=== PATIENT | male | born 1935 | race Caucasian/White ===

== ENCOUNTER → 2017-02-19 | Outpatient (CLI) | payer OTHER ==
--- NOTE | 2017-02-19 10:14 | US ---
EXAMINATION TYPE: US abdomen comp/pelvis limited DATE OF EXAM: 02/19/2017 9:17 AM COMPARISON: NONE CLINICAL HISTORY: N17.9 acute kidney failure. Acute renal failure, pt has no other complaints EXAM MEASUREMENTS: Liver Length: 13.9 cm Gallbladder Wall: 0.3 cm CBD: 0.5 cm Spleen: 9.6 cm Right Kidney: 9.6 x 5.5 x 5.4 cm Left Kidney: 11.5 x 5.6 x 4.8 cm Post Void Residual: 464 mL Pancreas: wnl, tail obscured by overlying bowel gas Liver: wnl Gallbladder: wnl CBD: wnl Spleen: wnl Right Kidney: Cortical thinning, no evidence of hydro Left Kidney: Slightly dilated renal pelvis cortical medullary differentiation maintained bilaterally . No evident renal mass Upper IVC: wnl in its visualized portions Abd Aorta: Within the limits of the exam wnl Bladder: There is some bladder wall thickening. Difficult to exclude some internal debris, luminal ma ss posteriorly Bilateral Jets Seen No Normal Post Void Residual (normal less than 50ml) No IMPRESSION: Elevated post void residual volume, bladder wall thickening, correlate to exclude cystiti s, difficult to exclude a superficial mass, follow-up as indicated. Correlate for chronic bladder out let obstruction. Mild left-sided hydronephrosis suspected. Cortical thinning right kidney.
== END | disposition home or self-care (01) ==
LOC: RADUSMAIN 08:33
PROVIDERS: ATTEND Nurse Practitioner Acute Care
DX: N32.89 Other specified disorders of bladder (principal); N28.89 Other specified disorders of kidney and ureter; R93.41 Abnormal radiologic findings on diagnostic imaging of renal pelvis, ureter, or bladder
CPT/HCPCS: 76700; 76857

== ENCOUNTER → 2017-09-17 | Outpatient (CLI) | payer OTHER ==
--- NOTE | 2017-09-17 11:19 | US ---
EXAMINATION TYPE: US abdomen comp/pelvis limited DATE OF EXAM: 09/17/2017 COMPARISON: 02/19/2017 CLINICAL HISTORY: 82-year-old male Kidney Failure N17.9. TECHNIQUE: Multiple sonographic images of the abdomen and bladder were obtained. FINDINGS: Liver Length: 12.9 cm Gallbladder Wall: 0.3 cm CBD: 0.4 cm Spleen: 12.1 cm Right Kidney: 10.3 x 5.3 x 5.3 cm Left Kidney: 11.8 x 6.0 x 5.4 cm Pancreas: visualized portions wnl. The tail is obscured by bowel gas. Liver: Relatively homogeneous echotexture. No focal lesion seen. Gallbladder: Anterior position. Otherwise, no abnormality seen. CBD: wnl Spleen: wnl Right Kidney: thinned cortex with mild pelvicaliectasis which may be transient. Left Kidney: thinned cortex without hydronephrosis Upper IVC: wnl Abd Aorta: Mild atherosclerotic irregularity without aneurysm. Bladder: wnl FOXER NOTES: patient has personal history of colon cancer and an ostomy bag. IMPRESSION: Renal cortical thinning suggesting underlying chronic medical renal disease. There is mild pelvicalie ctasis on the right which may be transient. Short interval follow-up can be considered.
== END | disposition home or self-care (01) ==
LOC: RADUSWWP 08:56
PROVIDERS: ATTEND Family Medicine
DX: N28.89 Other specified disorders of kidney and ureter (principal)
CPT/HCPCS: 76700; 76857

== ENCOUNTER → 2017-12-09 | Outpatient (CLI) | payer MEDICARE ==
[2017-12-09 11:30] LABS: Albumin 4.1 g/dL (3.5-5.0); Magnesium 1.8 mg/dL (1.6-2.3); Phosphorus 3.9 mg/dL (2.5-4.5); Potassium 5.3 mmol/L (3.5-5.1); Total Bilirubin 0.3 mg/dL (0.2-1.3); Total Protein 7.5 g/dL (6.3-8.2)
[2017-12-09 17:46] LABS: Vitamin D 25 Hydroxy 20.4 ng/mL (30.0-100.0)
[2017-12-09 18:35] LABS: Parathyroid Hormone Intact 48.8 pg/mL (14.0-72.0)
== END | disposition home or self-care (01) ==
LOC: LABWHC1 10:35
PROVIDERS: ATTEND Internal Medicine
DX: N18.3 Chronic kidney disease, stage 3 (moderate) (principal)
CPT/HCPCS: 36415; 80053; 82306; 83735; 83970; 84100; 84550

== ENCOUNTER → 2018-04-07 | Outpatient (CLI) | payer MEDICARE ==
[2018-04-07 14:58] LABS: Amorphous Sediment,Urine Rare /hpf; Appearance,Urine Turbid (Clear); Bilirubin,Urine Negative (Negative); Blood,Urine Small (Negative); Color,Urine Light Yellow; Glucose,Urine (UA) 3+ (Negative); Ketones,Urine Negative (Negative); Leukocyte Esterase,Urine Large (Negative); Nitrite,Urine Positive (Negative); PH, Urine 5.5 (5.0-8.0); Protein,Urine 1+ (Negative); RBC,Urine 13 /hpf (0-5); Urobilinogen,Urine <2.0 mg/dL (<2.0); WBC,Urine >182 /hpf (0-5)
[2018-04-07 15:03] LABS: Albumin 4.1 g/dL (3.5-5.0); Calcium 9.4 mg/dL (8.4-10.2); Magnesium 1.9 mg/dL (1.6-2.3); Phosphorus 3.8 mg/dL (2.5-4.5); Potassium 4.8 mmol/L (3.5-5.1); Total Bilirubin 0.2 mg/dL (0.2-1.3); Total Protein 7.1 g/dL (6.3-8.2); Uric Acid 7.5 mg/dL (3.5-8.5)
[2018-04-07 18:43] LABS: Vitamin D 25 Hydroxy 18.4 ng/mL (30.0-100.0)
[2018-04-07 19:04] LABS: Parathyroid Hormone Intact 68.3 pg/mL (14.0-72.0)
== END | disposition home or self-care (01) ==
LOC: LABWHC1 13:43
PROVIDERS: ATTEND Nurse Practitioner Family
DX: N18.3 Chronic kidney disease, stage 3 (moderate) (principal)
CPT/HCPCS: 36415; 80053; 81001; 82043; 82306; 82570; 83735; 83970; 84100; 84550

== ENCOUNTER 2022-01-14 10:56 | Observation (INO) | payer MEDICARE, OTHER ==
[2022-01-14 11:15] LABS: Glucose,Whole Blood 133 mg/dL (75-99)
[2022-01-14] MEDS ORDERED: SODIUM CHLORIDE 0.9% 500 ML 500 ML IV STA (11:35)
[2022-01-14] MEDS ORDERED: MECLIZINE 12.5 MG TAB PO STA (11:35)
[2022-01-14 12:07] LABS: Basophils % (A) 0 %; Eosinophils # (A) 0.1 k/uL (0-0.7); Eosinophils % (A) 2 %; HCT 47.1 % (39.0-53.0); HGB 14.8 gm/dL (13.0-17.5); Lymphocytes # (A) 1.4 k/uL (1.0-4.8); Lymphocytes % (A) 21 %; MCH 29.4 pg (25.0-35.0); MCHC 31.5 g/dL (31.0-37.0); MCV 93.5 fL (80.0-100.0); Mean Platelet Volume 7.2; Monocytes # (A) 0.5 k/uL (0-1.0); Monocytes % (A) 8 %; Neutrophils # (A) 4.4 k/uL (1.3-7.7); Neutrophils % (A) 67 %; Platelet Count 349 k/uL (150-450); RBC 5.04 m/uL (4.30-5.90); RDW 14.1 % (11.5-15.5); WBC 6.6 k/uL (3.8-10.6)
[2022-01-14 12:20] LABS: Partial Thromboplastin Time 23.9 sec (22.0-30.0); Prothrombin Time 11.3 sec (9.0-12.0)
--- NOTE | 2022-01-14 12:21 | CT ---
EXAMINATION TYPE: CT brain wo con DATE OF EXAM: 01/14/2022 COMPARISON: CT dated 02/25/2016 HISTORY: Dizziness and confusion. CT DLP: 1143.4 mGycm Automated exposure control for dose reduction was used. TECHNIQUE: CT scan of the brain is performed without IV contrast administration. FINDINGS: Brain volume loss changes, likely age-related. Bilateral cerebral white matter hypodensities, likely representing chronic microvascular ischemic changes. Right cerebellar area of encephalomalacia, proba radha representing sequela of previous intervention. No acute intracranial hemorrhage. No gross acute cortical infarct. No midline shift, herniation or ve ntriculomegaly. Unremarkable basal cisterns, sella and CP angles. No gross space-occupying lesion, va sogenic edema or mass effect. Unremarkable orbits. Asymmetrically prominent left side of the nasopharynx, appreciated previously. C lear visualized paranasal sinuses and mastoid air cells. Previous right partial occipital craniectomy . Osteopenia. IMPRESSION: No acute intracranial abnormality or gross space-occupying lesion by this nonenhanced CT scan. Chroni c and incidental findings as described above.
--- NOTE | 2022-01-14 12:43 | XR ---
EXAMINATION TYPE: XR chest 2V DATE OF EXAM: 01/14/2022 COMPARISON: Chest x-ray 03/12/2016, CT chest 11/06/2011 HISTORY: Dizziness, chest pain TECHNIQUE: Frontal and lateral views of the chest are obtained. FINDINGS: Pleural-parenchymal changes seen on prior exam show a similar appearance. Apical pleural t hickening is again seen, there is no evident pneumothorax or pleural effusion. Cardiac mediastinal si lhouette is likely stable accounting for differences in technique. Aorta is dense. 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 Arthropathy noted in the shoulders. IMPRESSION: Suspect underlying interstitial lung disease, pulmonary fibrosis with pleural thickening
[2022-01-14 13:40] LABS: Albumin 3.5 g/dL (3.5-5.0); Calcium 8.8 mg/dL (8.4-10.2); Magnesium 1.5 mg/dL (1.6-2.3); Potassium 5.1 mmol/L (3.5-5.1); Total Bilirubin 0.7 mg/dL (0.2-1.3); Total Protein 7.7 g/dL (6.3-8.2)
[2022-01-14 13:42] LABS: Appearance,Urine Turbid (Clear); Bacteria,Urine Many /hpf; Bilirubin,Urine Negative (Negative); Blood,Urine Moderate (Negative); Color,Urine Yellow; Glucose,Urine (UA) Negative (Negative); Ketones,Urine Negative (Negative); Leukocyte Esterase,Urine Large (Negative); Mucus,Urine Rare /hpf; Nitrite,Urine Positive (Negative); Protein,Urine 2+ (Negative); RBC,Urine 24 /hpf (0-5); Urobilinogen,Urine <2.0 mg/dL (<2.0); WBC,Urine >182 /hpf (0-5)
[2022-01-14 13:47] LABS: Specific Gravity,Urine 1.017 (1.001-1.035)
--- NOTE | 2022-01-14 14:02 | ED ---
Dizziness HPI - General Chief Complaint: Dizziness Stated Complaint: dizzy Time Seen by Provider: 01/14/22 11:19 Source: patient, RN notes reviewed Mode of arrival: ambulatory Limitations: no limitations - History of Present Illness Initial Comments: 86-year-old male presents emergency department with family for concerns of weakness, dizziness, generalized not feeling well. Patient started not feeling well the last couple days and Lorcet days and upper extremity infection. Patient states that he woke up this morning started having some dizziness states that he felt very unsteady on his feet. Patient states he just feels real weak, run down and as usual self. Denies any shortness of breath denies any nausea and diarrhea constipation. Patient reports subjective fevers and chills. No mental headache or any focal weakness no blurred vision. - Related Data Home Medications Medication Instructions Recorded Confirmed Levothyroxine Sodium [Synthroid] 100 mcg PO DAILY 02/25/16 01/14/22 Simvastatin [Zocor] 80 mg PO HS 02/25/16 01/14/22 Terazosin [Hytrin] 5 mg PO BID 02/25/16 01/14/22 Finasteride [Proscar] 5 mg PO DAILY 01/14/22 01/14/22 Insulin Glargine,Hum.rec.anlog 60 unit SQ DAILY 01/14/22 01/14/22 [Lantus Solostar Pen] amLODIPine [Norvasc] 5 mg PO DAILY 01/14/22 01/14/22 metFORMIN HCL [Glucophage] 500 mg PO BID 01/14/22 01/14/22 Allergies Allergy/AdvReac Type Severity Reaction Status Date / Time No Known Allergies Allergy Verified 01/14/22 12:48 Review of Systems ROS Statement: Those systems with pertinent positive or pertinent negative responses have been documented in the HPI. ROS Other: All systems not noted in ROS Statement are negative. Past Medical History Past Medical History: Cancer, CVA/TIA, Diabetes Mellitus Additional Past Medical History / Comment(s): colorectal ca- colostomy Left side History of Any Multi-Drug Resistant Organisms: None Reported Past Surgical History: Bowel Resection Additional Past Surgical History / Comment(s): benign brain tumor with removal Past Anesthesia/Blood Transfusion Reactions: No Reported Reaction Past Psychological History: No Psychological Hx Reported Smoking Status: Never smoker Past Alcohol Use History: Rare Past Drug Use History: None Reported - Past Family History Father Family Medical History: CVA/TIA General Exam Limitations: no limitations General appearance: alert, in no apparent distress Head exam: Present: atraumatic, normocephalic, normal inspection Eye exam: Present: normal appearance, PERRL, EOMI. Absent: scleral icterus, conjunctival injection, periorbital swelling ENT exam: Present: normal exam, normal oropharynx, mucous membranes moist Neck exam: Present: normal inspection, full ROM. Absent: tenderness, meningismus, lymphadenopathy Respiratory exam: Present: normal lung sounds bilaterally. Absent: respiratory distress, wheezes, rales, rhonchi, stridor Cardiovascular Exam: Present: regular rate, normal rhythm, normal heart sounds. Absent: systolic murmur, diastolic murmur, rubs, gallop, clicks GI/Abdominal exam: Present: soft, normal bowel sounds. Absent: distended, tenderness, guarding, rebound, rigid Back exam: Absent: CVA tenderness (R), CVA tenderness (L) Neurological exam: Present: alert Skin exam: Present: warm, dry, intact, normal color. Absent: rash Course Vital Signs 01/14/22 11:07 Temperature 97.8 F Pulse Rate 92 Respiratory 18 Rate Blood Pressure 175/90 O2 Sat by Pulse 98 Oximetry EKG Findings - EKG Comments: EKG Findings:: EKG performed at 1141 sinus rhythm with first-degree block, rate of 88 DC interval 229 QRS 82 QT/QTC 346 at 392 Medical Decision Making - Lab Data Result diagrams: 01/14/22 11:45 01/14/22 13:10 Lab Results 01/14/22 01/14/22 01/14/22 Range/Units 11:13 11:45 11:45 WBC 6.6 (3.8-10.6) k/uL RBC 5.04 (4.30-5.90) m/uL Hgb 14.8 (13.0-17.5) gm/dL Hct 47.1 (39.0-53.0) % MCV 93.5 (80.0-100.0) fL MCH 29.4 (25.0-35.0) pg MCHC 31.5 (31.0-37.0) g/dL RDW 14.1 (11.5-15.5) % Plt Count 349 (150-450) k/uL MPV 7.2 Neutrophils % 67 % Lymphocytes % 21 % Monocytes % 8 % Eosinophils % 2 % Basophils % 0 % Neutrophils # 4.4 (1.3-7.7) k/uL Lymphocytes # 1.4 (1.0-4.8) k/uL Monocytes # 0.5 (0-1.0) k/uL Eosinophils # 0.1 (0-0.7) k/uL Basophils # 0.0 (0-0.2) k/uL PT (9.0-12.0) sec INR (<1.2) APTT (22.0-30.0) sec Sodium (137-145) mmol/L Potassium (3.5-5.1) mmol/L Chloride (98-107) mmol/L Carbon Dioxide (22-30) mmol/L Anion Gap mmol/L BUN (9-20) mg/dL Creatinine (0.66-1.25) mg/dL Est GFR (CKD-EPI)AfAm (>60 ml/min/1.73 sqM) Est GFR (CKD-EPI)NonAf (>60 ml/min/1.73 sqM) Glucose (74-99) mg/dL POC Glucose (mg/dL) 133 H (75-99) mg/dL POC Glu Cinder Snapper ID Brian Roy Calcium (8.4-10.2) mg/dL Magnesium (1.6-2.3) mg/dL Total Bilirubin (0.2-1.3) mg/dL AST (17-59) U/L ALT (4-49) U/L Alkaline Phosphatase (38-126) U/L Troponin I (0.000-0.034) ng/mL Total Protein (6.3-8.2) g/dL Albumin (3.5-5.0) g/dL Urine Color Yellow Urine Appearance Turbid (Clear) Urine pH 8.0 (5.0-8.0) Ur Specific Elkins 1.017 (1.001-1.035) Urine Protein 2+ H (Negative) Urine Glucose (UA) Negative (Negative) Urine Ketones Negative (Negative) Urine Blood Moderate H (Negative) Urine Nitrite Positive (Negative) Urine Bilirubin Negative (Negative) Urine Urobilinogen <2.0 (<2.0) mg/dL Ur Leukocyte Esterase Large H (Negative) Urine RBC 24 H (0-5) /hpf Urine WBC >182 H (0-5) /hpf Urine WBC Clumps Many H (None) /hpf Urine Bacteria Many H (None) /hpf Urine Mucus Rare H (None) /hpf Coronavirus (PCR) (Not Detectd) Influenza Type A RNA (Not Detectd) Influenza Type B (PCR) (Not Detectd) 01/14/22 01/14/22 01/14/22 Range/Units 11:45 13:10 13:10 WBC (3.8-10.6) k/uL RBC (4.30-5.90) m/uL Hgb (13.0-17.5) gm/dL Hct (39.0-53.0) % MCV (80.0-100.0) fL MCH (25.0-35.0) pg MCHC (31.0-37.0) g/dL RDW (11.5-15.5) % Plt Count (150-450) k/uL MPV Neutrophils % % Lymphocytes % % Monocytes % % Eosinophils % % Basophils % % Neutrophils # (1.3-7.7) k/uL Lymphocytes # (1.0-4.8) k/uL Monocytes # (0-1.0) k/uL Eosinophils # (0-0.7) k/uL Basophils # (0-0.2) k/uL PT 11.3 (9.0-12.0) sec INR 1.0 (<1.2) APTT 23.9 (22.0-30.0) sec Sodium 140 (137-145) mmol/L Potassium 5.1 (3.5-5.1) mmol/L Chloride 111 H (98-107) mmol/L Carbon Dioxide 20 L (22-30) mmol/L Anion Gap 9 mmol/L BUN 39 H (9-20) mg/dL Creatinine 1.65 H (0.66-1.25) mg/dL Est GFR (CKD-EPI)AfAm 43 (>60 ml/min/1.73 sqM) Est GFR (CKD-EPI)NonAf 37 (>60 ml/min/1.73 sqM) Glucose 127 H (74-99) mg/dL POC Glucose (mg/dL) (75-99) mg/dL POC Glu Cinder Snapper ID Calcium 8.8 (8.4-10.2) mg/dL Magnesium 1.5 L (1.6-2.3) mg/dL Total Bilirubin 0.7 (0.2-1.3) mg/dL AST 17 (17-59) U/L ALT 11 (4-49) U/L Alkaline Phosphatase 99 (38-126) U/L Troponin I 0.013 (0.000-0.034) ng/mL Total Protein 7.7 (6.3-8.2) g/dL Albumin 3.5 (3.5-5.0) g/dL Urine Color Urine Appearance (Clear) Urine pH (5.0-8.0) Ur Specific Elkins (1.001-1.035) Urine Protein (Negative) Urine Glucose (UA) (Negative) Urine Ketones (Negative) Urine Blood (Negative) Urine Nitrite (Negative) Urine Bilirubin (Negative) Urine Urobilinogen (<2.0) mg/dL Ur Leukocyte Esterase (Negative) Urine RBC (0-5) /hpf Urine WBC (0-5) /hpf Urine WBC Clumps (None) /hpf Urine Bacteria (None) /hpf Urine Mucus (None) /hpf Coronavirus (PCR) (Not Detectd) Influenza Type A RNA (Not Detectd) Influenza Type B (PCR) (Not Detectd) 01/14/22 01/14/22 Range/Units 13:12 13:12 WBC (3.8-10.6) k/uL RBC (4.30-5.90) m/uL Hgb (13.0-17.5) gm/dL Hct (39.0-53.0) % MCV (80.0-100.0) fL MCH (25.0-35.0) pg MCHC (31.0-37.0) g/dL RDW (11.5-15.5) % Plt Count (150-450) k/uL MPV Neutrophils % % Lymphocytes % % Monocytes % % Eosinophils % % Basophils % % Neutrophils # (1.3-7.7) k/uL Lymphocytes # (1.0-4.8) k/uL Monocytes # (0-1.0) k/uL Eosinophils # (0-0.7) k/uL Basophils # (0-0.2) k/uL PT (9.0-12.0) sec INR (<1.2) APTT (22.0-30.0) sec Sodium (137-145) mmol/L Potassium (3.5-5.1) mmol/L Chloride (98-107) mmol/L Carbon Dioxide (22-30) mmol/L Anion Gap mmol/L BUN (9-20) mg/dL Creatinine (0.66-1.25) mg/dL Est GFR (CKD-EPI)AfAm (>60 ml/min/1.73 sqM) Est GFR (CKD-EPI)NonAf (>60 ml/min/1.73 sqM) Glucose (74-99) mg/dL POC Glucose (mg/dL) (75-99) mg/dL POC Glu Cinder Snapper ID Calcium (8.4-10.2) mg/dL Magnesium (1.6-2.3) mg/dL Total Bilirubin (0.2-1.3) mg/dL AST (17-59) U/L ALT (4-49) U/L Alkaline Phosphatase (38-126) U/L Troponin I (0.000-0.034) ng/mL Total Protein (6.3-8.2) g/dL Albumin (3.5-5.0) g/dL Urine Color Urine Appearance (Clear) Urine pH (5.0-8.0) Ur Specific Elkins (1.001-1.035) Urine Protein (Negative) Urine Glucose (UA) (Negative) Urine Ketones (Negative) Urine Blood (Negative) Urine Nitrite (Negative) Urine Bilirubin (Negative) Urine Urobilinogen (<2.0) mg/dL Ur Leukocyte Esterase (Negative) Urine RBC (0-5) /hpf Urine WBC (0-5) /hpf Urine WBC Clumps (None) /hpf Urine Bacteria (None) /hpf Urine Mucus (None) /hpf Coronavirus (PCR) Not Detected (Not Detectd) Influenza Type A RNA Not Detected (Not Detectd) Influenza Type B (PCR) Not Detected (Not Detectd) Disposition Clinical Impression: UTI (urinary tract infection), Weakness, Unsteady gait, Dizziness Disposition: ADMITTED IP TO THIS HOSP Condition: Fair Referrals: [facility],Clinic [Primary Care Provider] - 1-2 days Time of Disposition: 14:37
[2022-01-14] MEDS ORDERED: ACETAMINOPHEN TAB 325 MG TAB PO PRN (14:37)
[2022-01-14] MEDS ORDERED: NALOXONE 0.4 MG/ML 1 ML VIAL IV PRN (14:37)
[2022-01-14] MEDS ORDERED: ONDANSETRON 4 MG/2 ML VIAL IVP PRN (14:37)
--- NOTE | 2022-01-14 16:03 | US ---
EXAMINATION TYPE: US renals and bladder DATE OF EXAM: 01/14/2022 COMPARISON: Ultrasound dated 09/17/2017 CLINICAL HISTORY: infection. Abnormal renal labs EXAM MEASUREMENTS: Right Kidney: 9.1 x 4.8 x 4.8 cm Left Kidney: 9.6 x 5.4 x 4.7 cm Right Kidney: Cortical thinning, cyst lower pole= 2.0 x 1.4 x 2.1 cm Left Kidney: Cortical thinning Bladder: Unable to visualize due to pt voiding just prior to exam IMPRESSION: Bilateral renal cortical thinning, probably related to chronic medical renal disease. No hydronephros is bilaterally. The urinary bladder is completely collapsed.
--- NOTE | 2022-01-14 17:21 | P.HPIM ---
History of Present Illness H&P Date: 01/14/22 Chief Complaint: Generalized weakness 86-year-old man with a history of hypertension, diabetes, hypothyroidism, BPH, colostomy, for unclear reason presented for generalized weakness, shakes. Patient says that her symptoms started yesterday to this morning, initially which shakes, then progressing to generalized weakness. He also had chills and mild fevers according to him. He denies having any episodes of burning when he urinates, but does report that he's been going more frequently than normal, denies any hesitancy, nocturia. He denies any flank pain. He also denies: Nausea, vomiting, chest pain, palpitations, syncope, presyncope, cough, dyspnea, abdominal pain, constipation, diarrhea, dyschezia, numbness/weakness of extremities. Interestingly, patient has an ileostomy, but presented without a bag, with fecal contents across his abdomen. It is not clear why he has this ileostomy, and patient cannot remember when he had his procedure done for it. I was able to call patient's son Kodak, who was not aware the patient was hospitalized, documentation from our emergency room as that patient was brought in by family member. However, Kodak is on the next of kin to notify. Regardless, he was able to provide history for me that patient had a history of colon cancer with colectomy resulting in colostomy bag for which she typically has been routinely changing his bags. Which ever family member brought the patient in also had concerns about a little bit of confusion in the last couple days intermittently. In the emergency room, patient was afebrile, 175/90, heart rate 92, 98% on room air. CBC was unremarkable. Chemistries show mild acidosis without an anion gap to bicarb of 20, BUNs/creatinine of 39/1.65 with a baseline creatinine of 1.4. LFTs are unremarkable. Magnesium was little bit low at 1.5. Initial troponin was negative. UA was positive with 2+ glucose, moderate blood, positive nitrite, large amount of leukocyte esterase, 24 red blood cells, greater than 182 white blood cells, many bacteria, many white blood cell clumps. Covid, influenza A/B were all negative. Patient underwent brain CT due to history of confusion provided by family member, this had no acute intracranial abnormality or gross space-occupying lesion identified by the nonenhanced computed tomography scan. Chest x-ray shows underlying interstitial lung disease, concerning for pulmonary fibrosis and pleural thickening. EKG demonstrates normal sinus rhythm with first-degree AV block. Renal ultrasound shows no evidence of hydronephrosis or hydroureter, does show bilateral renal cortical thinning consistent with chronic medical renal disease. All Systems reviewed and pertinent positives and negatives noted in HPI, all other symptoms are negative Gen: awake, alert HEENT: normocephalic, atraumatic, good hearing acuity, moist mucous membranes Resp: good air exchange, breathing comfortably with no accessory muscle use, clear to auscultation bilaterally CVS: good distal perfusion x 4, regular rate and rhythm, no appreciable murmurs GI: soft, NTTP, ND : Positive SPT, no CVAT, costello catheter not present MSK: no pitting edema, no clubbing Neuro: non-focal, moving all extremities Psych: cooperative, euthymic mood Labs and imaging reviewed as above Assessment/plan: Complicated urinary tract infection Toxic encephalopathy secondary to urinary tract infection -Admit to observation, telemetry -Ceftriaxone -Urine culture -Frequent reorientation -IV fluids -Renal ultrasound was completed, negative for hydronephrosis or hydroureter or abscess Hypertension Hyperlipidemia Diabetes type 2 Hypothyroidism BPH History of colon cancer status post colostomy -Home medications reviewed and reconciled Patient is a no code DVT prophylaxis with heparin 3 times a day Past Medical History Past Medical History: Cancer, CVA/TIA, Diabetes Mellitus Additional Past Medical History / Comment(s): colorectal ca- colostomy Left side History of Any Multi-Drug Resistant Organisms: None Reported Past Surgical History: Bowel Resection Additional Past Surgical History / Comment(s): benign brain tumor with removal Past Anesthesia/Blood Transfusion Reactions: No Reported Reaction Past Psychological History: No Psychological Hx Reported Smoking Status: Never smoker Past Alcohol Use History: Rare Past Drug Use History: None Reported - Past Family History Father Family Medical History: CVA/TIA Medications and Allergies Home Medications Medication Instructions Recorded Confirmed Type Levothyroxine Sodium [Synthroid] 100 mcg PO DAILY 02/25/16 01/14/22 History Simvastatin [Zocor] 80 mg PO HS 02/25/16 01/14/22 History Terazosin [Hytrin] 5 mg PO BID 02/25/16 01/14/22 History Finasteride [Proscar] 5 mg PO DAILY 01/14/22 01/14/22 History Insulin Glargine,Hum.rec.anlog 60 unit SQ DAILY 01/14/22 01/14/22 History [Lantus Solostar Pen] amLODIPine [Norvasc] 5 mg PO DAILY 01/14/22 01/14/22 History metFORMIN HCL [Glucophage] 500 mg PO BID 01/14/22 01/14/22 History Allergies Allergy/AdvReac Type Severity Reaction Status Date / Time No Known Allergies Allergy Verified 01/14/22 12:48 Physical Exam Osteopathic Statement: *. No significant issues noted on an osteopathic structural exam other than those noted in the History and Physical/Consult. Vitals: Vital Signs Temp Pulse Resp BP Pulse Ox 01/14/22 15:28 85 18 144/80 98 01/14/22 11:07 97.8 F 92 18 175/90 98 Intake and Output 01/14/22 01/14/22 01/14/22 06:59 14:59 22:59 Other: Weight 68.039 kg Results CBC & Chem 7: 01/14/22 11:45 01/14/22 13:10 Labs: Abnormal Lab Results - Last 24 Hours (Table) 01/14/22 01/14/22 01/14/22 Range/Units 11:13 11:45 13:10 Chloride 111 H (98-107) mmol/L Carbon Dioxide 20 L (22-30) mmol/L BUN 39 H (9-20) mg/dL Creatinine 1.65 H (0.66-1.25) mg/dL Glucose 127 H (74-99) mg/dL POC Glucose (mg/dL) 133 H (75-99) mg/dL Magnesium 1.5 L (1.6-2.3) mg/dL Urine Protein 2+ H (Negative) Urine Blood Moderate H (Negative) Ur Leukocyte Esterase Large H (Negative) Urine RBC 24 H (0-5) /hpf Urine WBC >182 H (0-5) /hpf Urine WBC Clumps Many H (None) /hpf Urine Bacteria Many H (None) /hpf Urine Mucus Rare H (None) /hpf
[2022-01-14 18:18] LABS: Glucose,Whole Blood 102 mg/dL (75-99)
[2022-01-14 20:01] LABS: Glucose,Whole Blood 129 mg/dL (75-99)
[2022-01-14] MEDS ORDERED: DOXAZOSIN 4 MG TAB PO SCH (21:00)
[2022-01-14] MEDS ORDERED: ATORVASTATIN 40 MG TAB PO SCH (21:00)
[2022-01-14] MEDS: HEPARIN SODIUM,PORCINE/PF 5,000 UNIT/0.5 ML SYRINGE SQ SCH (21:16)
[2022-01-14] MEDS: SODIUM CHLORIDE 0.9% 1,000 ML IV SCH (21:17)
[2022-01-14] MEDS: metFORMIN 500 MG TAB PO SCH (22:46)
[2022-01-15] MEDS: SODIUM CHLORIDE 0.9% 1,000 ML IV SCH ×2 (05:45→09:51)
[2022-01-15] MEDS ORDERED: LEVOTHYROXINE 100 MCG TAB PO SCH (06:30)
[2022-01-15 07:48] LABS: Glucose,Whole Blood 156 mg/dL (75-99)
[2022-01-15 08:30] VITALS: BP 136/69; PULSE 86; RESP 16; TEMP 97.6
[2022-01-15] MEDS ORDERED: amLODIPine 5 MG TAB PO SCH (09:00)
[2022-01-15] MEDS ORDERED: INSULIN DETEMIR (LEVEMIR) 100 UNIT/ML SYR SQ SCH (09:00)
[2022-01-15] MEDS ORDERED: FINASTERIDE 5 MG TAB PO SCH (09:00)
[2022-01-15 09:31] LABS: African American GFR (CKD) 36.4 (60.0-200.0); Anion Gap 12.4 mmol/L (10.00-18.00); BUN/Creat Ratio 19.11 Ratio (12.00-20.00); Blood Urea Nitrogen 36.3 mg/dL (9.0-27.0); Calcium 9.1 mg/dL (8.7-10.3); Carbon Dioxide 20.6 mmol/L (20.0-27.5); Magnesium 1.8 mg/dL (1.5-2.4); Non-African American GFR(CKD) 31.4 (60.0-200.0); Potassium 5.1 mmol/L (3.5-5.5)
[2022-01-15] MEDS: HEPARIN SODIUM,PORCINE/PF 5,000 UNIT/0.5 ML SYRINGE SQ SCH (09:44)
[2022-01-15] MEDS: metFORMIN 500 MG TAB PO SCH (09:45)
[2022-01-15 12:19] LABS: Glucose,Whole Blood 146 mg/dL (75-99)
--- NOTE | 2022-01-15 14:36 | P.DS ---
Providers Date of admission: 01/14/22 14:37 Expected date of discharge: 01/15/22 Attending physician: Davi Baltazar MD Primary care physician: [facility] Hospital Course: 86-year-old man with a history of hypertension, diabetes, hypothyroidism, BPH, colostomy, for history of colon cancer status post colectomy presented for generalized weakness, shakes. In the emergency room, patient was afebrile, 175/90, heart rate 92, 98% on room air. CBC was unremarkable. Chemistries show mild acidosis without an anion gap to bicarb of 20, BUNs/creatinine of 39/1.65 with a baseline creatinine of 1.4. LFTs are unremarkable. Magnesium was little bit low at 1.5. Initial troponin was negative. UA was positive with 2+ glucose, moderate blood, positive nitrite, large amount of leukocyte esterase, 24 red blood cells, greater than 182 white blood cells, many bacteria, many white blood cell clumps. Covid, influenza A/B were all negative. Patient underwent brain CT due to history of confusion provided by family member, this had no acute intracranial abnormality or gross space-occupying lesion identified by the nonenhanced computed tomography scan. Chest x-ray shows underlying interstitial lung disease, concerning for pulmonary fibrosis and pleural thickening. EKG demonstrates normal sinus rhythm with first-degree AV block. Renal ultrasound shows no evidence of hydronephrosis or hydroureter, does show bilateral renal cortical thinning consistent with chronic medical renal disease. Complicated urinary tract infection Toxic encephalopathy secondary to urinary tract infection -Admitted to observation, with telemetry. Treated with ceftriaxone. UCx pending at time of discharge. Pt returned to baseline mentation and physical status and was eagerly awaiting discharge. I prescribed cefdinir for total of 7 days. Pt will f/u with PCP. Hypertension Hyperlipidemia Diabetes type 2 Hypothyroidism BPH History of colon cancer status post colostomy -Home medications reviewed and reconciled, no changes made on discharge. Gen: awake, alert HEENT: normocephalic, atraumatic, good hearing acuity, moist mucous membranes Resp: good air exchange, breathing comfortably with no accessory muscle use, clear to auscultation bilaterally CVS: good distal perfusion x 4, regular rate and rhythm, no appreciable murmurs GI: soft, NTTP, ND : Positive SPT, no CVAT, costello catheter not present MSK: no pitting edema, no clubbing Neuro: non-focal, moving all extremities Psych: cooperative, euthymic mood Patient Condition at Discharge: Good Plan - Discharge Summary New Discharge Prescriptions: New Cefdinir 300 mg PO Q12HR 6 Days #12 cap Acetaminophen Tab [Tylenol] 650 mg PO Q6HR PRN tab PRN Reason: Mild Pain Or Fever > 100.5 Continue Terazosin [Hytrin] 5 mg PO BID Simvastatin [Zocor] 80 mg PO HS Levothyroxine Sodium [Synthroid] 100 mcg PO DAILY metFORMIN HCL [Glucophage] 500 mg PO BID amLODIPine [Norvasc] 5 mg PO DAILY Insulin Glargine,Hum.rec.anlog [Lantus Solostar Pen] 60 unit SQ DAILY Finasteride [Proscar] 5 mg PO DAILY Discharge Medication List Levothyroxine Sodium [Synthroid] 100 mcg PO DAILY 02/25/16 [History] Simvastatin [Zocor] 80 mg PO HS 02/25/16 [History] Terazosin [Hytrin] 5 mg PO BID 02/25/16 [History] Finasteride [Proscar] 5 mg PO DAILY 01/14/22 [History] Insulin Glargine,Hum.rec.anlog [Lantus Solostar Pen] 60 unit SQ DAILY 01/14/22 [History] amLODIPine [Norvasc] 5 mg PO DAILY 01/14/22 [History] metFORMIN HCL [Glucophage] 500 mg PO BID 01/14/22 [History] Acetaminophen Tab [Tylenol] 650 mg PO Q6HR PRN tab 01/15/22 [Rx] Cefdinir 300 mg PO Q12HR 6 Days #12 cap 01/15/22 [Rx] Follow up Appointment(s)/Referral(s): [facility],Clinic [Primary Care Provider] - 1-2 days Patient Instructions/Handouts: Cefdinir (By mouth) Activity/Diet/Wound Care/Special Instructions: Consistent Carbohydrate diet. Follow up as directed. Call your Primary Dr with return or worsening of the symptoms that brought you here or any concerns. Discharge Disposition: HOME WITH HOME HEALTH SERVICES
== END 2022-01-15 14:18 | disposition home health service (06) ==
LOC: EC 10:56 → 6NMEDSUR 14:37
PROVIDERS: ADMIT Internal Medicine; ATTEND Internal Medicine
DX: N39.0 Urinary tract infection, site not specified (principal); G92.8 Other toxic encephalopathy; I10 Essential (primary) hypertension; E78.5 Hyperlipidemia, unspecified; E11.9 Type 2 diabetes mellitus without complications; E03.9 Hypothyroidism, unspecified; N40.0 Benign prostatic hyperplasia without lower urinary tract symptoms; R42 Dizziness and giddiness; R26.81 Unsteadiness on feet; E87.2 Acidosis; J84.9 Interstitial pulmonary disease, unspecified; I44.0 Atrioventricular block, first degree; Z20.822 Contact with and (suspected) exposure to COVID-19; Z86.73 Personal history of transient ischemic attack (TIA), and cerebral infarction without residual deficits; Z85.048 Personal history of other malignant neoplasm of rectum, rectosigmoid junction, and anus; Z86.011 Personal history of benign neoplasm of the brain; Z93.3 Colostomy status; Z93.2 Ileostomy status; Z79.890 Hormone replacement therapy; Z79.899 Other long term (current) drug therapy; Z79.84 Long term (current) use of oral hypoglycemic drugs; Z90.49 Acquired absence of other specified parts of digestive tract; Z82.3 Family history of stroke
CPT/HCPCS: 96361 ×2; 96372 ×2; 96360; 99285; 36415; 93005; 80053; 80048; 83735 ×2; 84484; 85025; 85610; 85730; 81001; 87086; 87077; 87186; 87502; 87635; 71046; 76770; 70450; G0378 ×2; S0138; J0696; J1644 ×2

== ENCOUNTER 2023-01-05 22:56 | Inpatient (IN) | payer MEDICARE, OTHER ==
[2023-01-06] MEDS ORDERED: NALOXONE 0.4 MG/ML 1 ML VIAL IV PRN (00:21)
--- NOTE | 2023-01-06 00:21 | ED ---
General Adult HPI - General Chief complaint: Urogenital Stated complaint: UTI, Pneumonia Time Seen by Provider: 01/05/23 22:59 Source: EMS Mode of arrival: EMS Limitations: altered mental status - History of Present Illness Initial comments: This is an 87-year-old male who presents emergency Department as a transfer patient from [place] emergency department. The patient was found to have a UTI, multifocal pneumonia and sepsis. The patient was transferred to this facility for admission for further workup and evaluation. On arrival, the patient was ANO times one and was pleasantly confused. The patient was reportedly at his baseline. The patient was resting in bed comfortably and did not complain of any acute pain or distress. No further history could be obtained at this time as the patient is altered and at his baseline. - Related Data Home Medications Medication Instructions Recorded Confirmed Levothyroxine Sodium [Synthroid] 100 mcg PO DAILY 02/25/16 01/14/22 Simvastatin [Zocor] 80 mg PO HS 02/25/16 01/14/22 Terazosin [Hytrin] 5 mg PO BID 02/25/16 01/14/22 Finasteride [Proscar] 5 mg PO DAILY 01/14/22 01/14/22 Insulin Glargine,Hum.rec.anlog 60 unit SQ DAILY 01/14/22 01/14/22 [Lantus Solostar Pen] amLODIPine [Norvasc] 5 mg PO DAILY 01/14/22 01/14/22 metFORMIN HCL [Glucophage] 500 mg PO BID 01/14/22 01/14/22 Previous Rx's Medication Instructions Recorded Acetaminophen Tab [Tylenol] 650 mg PO Q6HR PRN tab 01/15/22 Cefdinir 300 mg PO Q12HR 6 Days #12 cap 01/15/22 Allergies Allergy/AdvReac Type Severity Reaction Status Date / Time No Known Allergies Allergy Verified 01/14/22 12:48 Review of Systems ROS Statement: Those systems with pertinent positive or pertinent negative responses have been documented in the HPI. ROS Other: All systems not noted in ROS Statement are negative. Past Medical History Past Medical History: Cancer, CVA/TIA, Diabetes Mellitus Additional Past Medical History / Comment(s): colorectal ca- colostomy Left side History of Any Multi-Drug Resistant Organisms: None Reported Past Surgical History: Bowel Resection Additional Past Surgical History / Comment(s): benign brain tumor with removal Past Anesthesia/Blood Transfusion Reactions: Unable to Obtain Past Psychological History: Unable to Obtain Smoking Status: Unknown if ever smoked Past Alcohol Use History: Unable to Obtain Past Drug Use History: Unable to Obtain - Past Family History Father Family Medical History: Unable to Obtain, CVA/TIA General Exam Limitations: altered mental status (ANOx1 at baseline) General appearance: alert, in no apparent distress Head exam: Present: atraumatic, normocephalic, normal inspection Eye exam: Present: normal appearance, PERRL Pupils: Present: normal accommodation ENT exam: Present: normal exam, normal oropharynx, mucous membranes moist Neck exam: Present: normal inspection, full ROM Respiratory exam: Present: normal lung sounds bilaterally Cardiovascular Exam: Present: regular rate, normal rhythm GI/Abdominal exam: Present: soft, normal bowel sounds, other (Colostomy present) Extremities exam: Present: normal inspection, full ROM Back exam: Present: normal inspection, full ROM Neurological exam: Present: alert, altered (ANOx1, at baseline) Psychiatric exam: Present: normal affect, normal mood Skin exam: Present: warm, dry Course Vital Signs 01/05/23 23:07 Temperature 97 F L Pulse Rate 94 Respiratory 20 Rate Blood Pressure 132/53 O2 Sat by Pulse 95 Oximetry Medical Decision Making - Medical Decision Making Was pt. sent in by a medical professional or institution ([facility], [facility] [employer], urgent care, hospital, or senior living...) When possible be specific @ -Yes, sent from [place] emergency department Did you speak to anyone other than the patient for history (EMS, parent, family, police, friend...)? What history was obtained from this source @ -No Did you review nursing and triage notes (agree or disagree)? Why? @ -I reviewed and agree with nursing and triage notes Were old charts reviewed (outside hosp., previous admission, EMS record, old EKG, old radiological studies, urgent care reports/EKG's, senior living records)? Report findings @ -Yes, outside facility chart was reviewed Differential Diagnosis (chest pain, altered mental status, abdominal pain women, abdominal pain men, vaginal bleeding, weakness, fever, dyspnea, syncope, headache, dizziness, GI bleed, back pain, seizure, CVA, palpatations, mental health)? @ -UTI, multifocal pneumonia, sepsis EKG interpreted by me (3pts min.). @ -None X-rays interpreted by me (1pt min.). @ -None done CT interpreted by me (1pt min.). @ -None done U/S interpreted by me (1pt. min.). @ -None done What testing was considered but not performed or refused? (CT, X-rays, U/S, labs)? Why? @ -No imaging or testing for sepsis was obtained at this time however repeat labs were ordered. The patient had a full workup and sepsis protocol obtained at the outside facility. What meds were considered but not given or refused? Why? @ -An [place] X were considered however the patient had artery received normal saline fluid as well as and about X per sepsis protocol at the outside facility. Did you discuss the management of the patient with other professionals (professionals i.e. , PA, [employer], lab, RT, psych nurse, hospital social worker, chimney sweeper, teacher, president and chief commercial officer, case planner)? Give summary @ -Yes, admitting physician Was smoking cessation discussed for >3mins.? @ -No Was critical care preformed (if so, how long)? @ -No Were there social determinants of health that impacted care today? How? (Homelessness, low income, unemployed, alcoholism, drug addiction, transportati on, low edu. Level, literacy, decrease access to med. care, chcf, rehab)? @ -No Was there de-escalation of care discussed even if they declined (Discuss DNR or withdrawal of care, Hospice)? DNR status @ -No What co-morbidities impacted this encounter? (DM, HTN, Smoking, COPD, CAD, Cancer, CVA, ARF, Chemo, Hep., AIDS, mental health diagnosis, sleep apnea, morbid obesity)? @ -Alzheimer's, dementia, hypothyroidism, diabetes Was patient admitted / discharged? Hospital course, mention meds given and route, prescriptions, significant lab abnormalities, going to OR and other pertinent info. @ -The patient was seen and evaluated emergency department. Physical exam, the patient was resting in bed, pleasantly confused and at his baseline. Vital signs were stable. All workup was performed at the outside facility including sepsis workup however repeat labs including repeat lactic acid was obtained here. The patient continued to remain stable and due to the patient's UTI, multifocal pneumonia and sepsis, the patient will be admitted for further workup and evaluation. The patient was admitted in stable condition. Previously on exam at the outside facility, it was noted the patient had hydronephrosis without a kidney stone. The patient did not complain of any abdominal pain. Urology will be placed on consult for this. Undiagnosed new problem with uncertain prognosis? @ -No Drug Therapy requiring intensive monitoring for toxicity (Heparin, Nitro, Insulin, Cardizem)? @ -No Were any procedures done? @ -No Diagnosis/symptom? @ -Sepsis secondary to UTI versus multifocal pneumonia Acute, or Chronic, or Acute on Chronic? @ -Acute Uncomplicated (without systemic symptoms) or Complicated (systemic symptoms)? @ -Complicated Side effects of treatment? @ -No Exacerbation, Progression, or Severe Exacerbation? @ -No Poses a threat to life or bodily function? How? (Chest pain, [place], [place], pneumonia, PE, COPD, DKA, ARF, appy, cholecystitis, CVA, Diverticulitis, Homicidal, Suicidal, threat to staff... and all critical care pts) @ -Yes, worsening sepsis can cause continued and permanent damage and possible . Diagnosis/symptom? @ -Hydronephrosis without nephrolithiasis Acute, or Chronic, or Acute on Chronic? @ -Acute Uncomplicated (without systemic symptoms) or Complicated (systemic symptoms)? @ -Uncomplicated Side effects of treatment? @ -none Exacerbation, Progression, or Severe Exacerbation] @ -no Poses a threat to life or bodily function? @ -Yes, worsening hydronephrosis can cause continued kidney damage - Lab Data Result diagrams: 01/05/23 23:44 Lab Results 01/05/23 Range/Units 23:44 Sodium 138 (137-145) mmol/L Potassium 5.6 H (3.5-5.1) mmol/L Chloride 109 H (98-107) mmol/L Carbon Dioxide 19 L (22-30) mmol/L Anion Gap 10 mmol/L BUN 73 H (9-20) mg/dL Creatinine 2.04 H (0.66-1.25) mg/dL Est GFR (CKD-EPI)AfAm 33 (>60 ml/min/1.73 sqM) Est GFR (CKD-EPI)NonAf 29 (>60 ml/min/1.73 sqM) Glucose 180 H (74-99) mg/dL Calcium 8.9 (8.4-10.2) mg/dL Magnesium 2.0 (1.6-2.3) mg/dL Total Bilirubin 0.7 (0.2-1.3) mg/dL AST 21 (17-59) U/L ALT 17 (4-49) U/L Alkaline Phosphatase 66 (38-126) U/L Total Protein 6.8 (6.3-8.2) g/dL Albumin 3.3 L (3.5-5.0) g/dL Lipase 60 (23-300) U/L Disposition Clinical Impression: UTI (urinary tract infection), Sepsis, Multifocal pneumonia, Hydronephrosis Disposition: ADMITTED IP TO THIS [facility] Condition: Stable Is patient prescribed a controlled substance at d/c from ED?: No Time of Disposition: 23:45 Decision to Admit Reason: Admit from EC Decision Date: 01/05/23 Decision Time: 23:45
[2023-01-06 00:46] LABS: Albumin 3.3 g/dL (3.5-5.0); Calcium 8.9 mg/dL (8.4-10.2); Potassium 5.6 mmol/L (3.5-5.1); Total Bilirubin 0.7 mg/dL (0.2-1.3); Total Protein 6.8 g/dL (6.3-8.2)
[2023-01-06] MEDS: SODIUM CHLORIDE 0.9% 1,000 ML IV SCH ×3 (01:02→23:10)
[2023-01-06 01:06] LABS: Basophils % (A) 0 %; Eosinophils % (A) 0 %; HCT 36.3 % (39.0-53.0); HGB 11.9 gm/dL (13.0-17.5); Lymphocytes # (A) 0.7 k/uL (1.0-4.8); Lymphocytes % (A) 6 %; MCH 30.5 pg (25.0-35.0); MCHC 32.8 g/dL (31.0-37.0); MCV 92.9 fL (80.0-100.0); Mean Platelet Volume 8.8; Monocytes # (A) 0.8 k/uL (0-1.0); Monocytes % (A) 7 %; Neutrophils # (A) 9.9 k/uL (1.3-7.7); Neutrophils % (A) 85 %; Platelet Count 354 k/uL (150-450); RDW 13.4 % (11.5-15.5); WBC 11.5 k/uL (3.8-10.6)
[2023-01-06] MEDS ORDERED: ACETAMINOPHEN TAB 325 MG TAB PO PRN (02:58)
[2023-01-06] MEDS ORDERED: PIPERACILLIN-TAZOBACTAM 3.375 GM in SODIUM CHLORIDE 0.9% 100 ML IVPB ONE (03:15)
--- NOTE | 2023-01-06 03:22 | P.HPIM ---
History of Present Illness H&P Date: 01/06/23 Chief Complaint: aspiration pneumonia 87 year old male with dementia, BPH, DM , hypothyroid , h/o colon cancer s/p colostomy patient is a transfer from [facility] , he is a NHR at [facility] . unable to provide any meaningful history due to dementia , history obtained by reviewing medical records and discussing case with ED doc. patient is a NHR , he was at his baseline status of health, when today at 4 pm while trying to take his pills, he suddenly started chocking coughing and gagging until he coughed up the pills. then he continued to be short of breath and coughing , for which he was sent to the hospital for evaluation . no report of fever, chills, nausea or vomiting, no report of chest pain , abd pain , or any recent hospital stay during workup at the other facility , he was found to have multifocal pneumonia on chest CT, and mild left hydronephrosis on abd CT , no blockages seen. Review of Systems ROS unobtainable: due to mental status Past Medical History Past Medical History: Cancer, CVA/TIA, Diabetes Mellitus Additional Past Medical History / Comment(s): colorectal ca- colostomy Left side History of Any Multi-Drug Resistant Organisms: None Reported Past Surgical History: Bowel Resection Additional Past Surgical History / Comment(s): benign brain tumor with removal Past Anesthesia/Blood Transfusion Reactions: Unable to Obtain Past Psychological History: Unable to Obtain Smoking Status: Unknown if ever smoked Past Alcohol Use History: Unable to Obtain Past Drug Use History: Unable to Obtain - Past Family History Father Family Medical History: Unable to Obtain, CVA/TIA Medications and Allergies Home Medications Medication Instructions Recorded Confirmed Type Levothyroxine Sodium [Synthroid] 100 mcg PO DAILY 02/25/16 01/14/22 History Simvastatin [Zocor] 80 mg PO HS 02/25/16 01/14/22 History Terazosin [Hytrin] 5 mg PO BID 02/25/16 01/14/22 History Finasteride [Proscar] 5 mg PO DAILY 01/14/22 01/14/22 History Insulin Glargine,Hum.rec.anlog 60 unit SQ DAILY 01/14/22 01/14/22 History [Lantus Solostar Pen] amLODIPine [Norvasc] 5 mg PO DAILY 01/14/22 01/14/22 History metFORMIN HCL [Glucophage] 500 mg PO BID 01/14/22 01/14/22 History Acetaminophen Tab [Tylenol] 650 mg PO Q6HR PRN tab 01/15/22 Rx Cefdinir 300 mg PO Q12HR 6 Days #12 cap 01/15/22 Rx Allergies Allergy/AdvReac Type Severity Reaction Status Date / Time No Known Allergies Allergy Verified 01/14/22 12:48 Physical Exam Vitals: Vital Signs Temp Pulse Resp BP Pulse Ox 01/06/23 01:04 89 24 118/44 95 01/05/23 23:07 97 F L 94 20 132/53 95 Intake and Output 01/05/23 01/05/23 01/06/23 14:59 22:59 06:59 Other: Weight 70.307 kg Constitutional: No acute distress sleeping easily arousable but confused Eyes: Anicteric sclerae, moist conjunctiva, Pupils equal round reactive to light ENMT: NC/AT Oropharynx clear, no erythema, or exudates Neck: Supple, no masses, or JVD No carotid bruits No thyromegaly Lungs: rhonchorus breathing throughout , no wheezing Clear to percussion Normal respiratory effort, no accessory muscle use Cardiovascular: Heart regular in rate and rhythm, No murmurs, gallops, or rubs No peripheral edema Abdominal: Soft, colostomy bag in place Nontender, no guarding, rebound or rigidity Abdomen moving with respiration Normoactive bowel sounds No hepatomegaly, No splenomegaly No palpable mass No abdominal wall hernia noted Skin: Normal temperature, tone, texture, turgor Extremities: No digital cyanosis No clubbing Pedal pulses intact and symmetrical Radial pulses intact and symmetrical No calf tenderness Psychiatric: sleepy easily arousable and oriented to person only Neuro moving all four extremities, unable to follow complex commands to assess for neuro exam Sensation to light touch grossly present throughout Cranial nerves II-XII grossly intact Lymphatics: no palpable cervical or supraclavicular lymph nodes Results CBC & Chem 7: 01/05/23 23:44 01/05/23 23:44 Labs: Abnormal Lab Results - Last 24 Hours (Table) 01/05/23 01/05/23 01/05/23 Range/Units 23:44 23:44 23:44 WBC 11.5 H (3.8-10.6) k/uL RBC 3.90 L (4.30-5.90) m/uL Hgb 11.9 L (13.0-17.5) gm/dL Hct 36.3 L (39.0-53.0) % Neutrophils # 9.9 H (1.3-7.7) k/uL Lymphocytes # 0.7 L (1.0-4.8) k/uL Potassium 5.6 H (3.5-5.1) mmol/L Chloride 109 H (98-107) mmol/L Carbon Dioxide 19 L (22-30) mmol/L BUN 73 H (9-20) mg/dL Creatinine 2.04 H (0.66-1.25) mg/dL Glucose 180 H (74-99) mg/dL Plasma Lactic Acid Geoffrey 2.9 H* (0.7-2.0) mmol/L Albumin 3.3 L (3.5-5.0) g/dL Assessment and Plan Assessment: 87 years old male NHR , started chocking on pills today after which became SOB with coughing and gagging, I discussed the case with ED doc, patient sent to our facility for urology evaluation due to left hydronephrosis with out obvious obstruction and treatment of pneumonia admitted as inpatient with anticipated length of stay > 2 midnights sepsis (febrile 103, tachycardia reported at the other facility ) acute hypoxic respiratory failure (requiring 5 L NC at the other facility ) Aspiration pneumonia left hydronephrosis lactic acidosis ERIN follow up cultures IVF hydration with normal saline, 1 L bolus X2 received at the other facility , continue with normal saline at 75 cc per hour patient received vanco and zosyn at the other facility , will continue with Zosyn only 3.375 mg TID IVPB Tylenol for fever, 650 mg PO Q4hr PRN swallow eval aspiration precautions elevated procalcitonin fall precautions cr 2.3 unknwon baseline , BUN 74, CO2 19 CT abd showed non obstructive , left hydronephrosis , urology consult , monitor urine output avoid nephrotoxic meds , patient received contrast for CT at the other facility hold lisinopril home meds urology consult blood work reviewed , urinalysis negative nitrate , leukocyte esterase +3 blood +2 , COVID negative , influenza negative , RSV negative , WBC 9.3 --> 11.5, Hgb 13.5--> 11.9 no observed source of bleeding , dropped after IVF hydration , platelets 414 hyperkalemia , improved K 6.1--> 5.6 patient received K lowering medications when it was 6.1 chronic conditions that are stable dementia GERD, resume Protonix 40 mg daily DM , insulin sliding scale , check A1c hypothyroid . resume levothyroxine 100 mcg daily PO h/o colon cancer s/p colostomy , colostomy care fall precautions DVT PPX heparin sc tid
[2023-01-06 06:13] LABS: Basophils % (A) 0 %; Eosinophils % (A) 0 %; HCT 35.2 % (39.0-53.0); HGB 11.1 gm/dL (13.0-17.5); Lymphocytes % (A) 10 %; MCH 29.8 pg (25.0-35.0); MCHC 31.5 g/dL (31.0-37.0); MCV 94.8 fL (80.0-100.0); Mean Platelet Volume 7.3; Monocytes # (A) 0.6 k/uL (0-1.0); Monocytes % (A) 6 %; Neutrophils # (A) 8.6 k/uL (1.3-7.7); Neutrophils % (A) 83 %; Platelet Count 348 k/uL (150-450); RBC 3.72 m/uL (4.30-5.90); RDW 13.2 % (11.5-15.5); WBC 10.4 k/uL (3.8-10.6)
[2023-01-06 08:09] LABS: Glucose,Whole Blood 168 mg/dL (70-110)
[2023-01-06] MEDS: PANTOPRAZOLE 40 MG TABLET PO SCH (08:44)
[2023-01-06] MEDS: INSULIN ASPART (NovoLOG) 100 UNIT/ML VIAL SQ SCH ×4 (09:40→23:17)
[2023-01-06] MEDS: HEPARIN SODIUM,PORCINE/PF 5,000 UNIT/0.5 ML SYRINGE SQ SCH ×2 (09:40→17:06)
[2023-01-06] MEDS: LEVOTHYROXINE 100 MCG TAB PO SCH ×2 (09:48→10:01)
[2023-01-06] MEDS: FINASTERIDE 5 MG TAB PO SCH ×2 (09:48→10:02)
[2023-01-06 10:10] LABS: African American GFR (CKD) 28.7 (60.0-200.0); BUN/Creat Ratio 30.43 Ratio (12.00-20.00); Non-African American GFR(CKD) 24.8 (60.0-200.0); Potassium 5.4 mmol/L (3.5-5.5)
--- NOTE | 2023-01-06 10:36 | P.GSCN ---
History of Present Illness Consult date: 01/06/23 Reason for Consult: Hydronephrosis Requesting physician: Atilio Miller History of present illness: The patient is an 87 year-old male with a past medical history of CVA, dementia, diabetes mellitus, and colorectal cancer s/p colostomy. He presented to the emergency department today as a transfer from [facility]. He found to have a UTI, multifocal pneumonia and sepsis. The patient was transferred to this facility for admission for further workup and evaluation. The patient is pleasantly confused and a poor historian. Information obtained from EMR. The patient is a retirement resident. Reportedly, he was at his baseline status of health when today while trying to take his pills, he suddenly started chocking coughing and gagging until he coughed up the pills. then he continued to be short of breath and coughing, for which he was sent to the hospital for evaluation. No report of fever, chills, nausea or vomiting, no report of chest pain, abdominal pain, or any recent hospital stay. Workup in [place] emergency department included a abdominal CT which revealed mild left hydronephrosis without an obvious cause of obstruction, and a chest CT with evidence of multifocal pneumonia. The patient sent to our facility for urology evaluation due to left hydronephrosis and treatment of pneumonia. Review of Systems ROS unobtainable: due to mental status Past Medical History Past Medical History: Cancer, CVA/TIA, Diabetes Mellitus Additional Past Medical History / Comment(s): colorectal ca- colostomy Left side History of Any Multi-Drug Resistant Organisms: None Reported Past Surgical History: Bowel Resection Additional Past Surgical History / Comment(s): benign brain tumor with removal Past Anesthesia/Blood Transfusion Reactions: Unable to Obtain Past Psychological History: Unable to Obtain Smoking Status: Unknown if ever smoked Past Alcohol Use History: Unable to Obtain Past Drug Use History: Unable to Obtain - Past Family History Father Family Medical History: Unable to Obtain, CVA/TIA Medications and Allergies Home Medications Medication Instructions Recorded Confirmed Type Levothyroxine Sodium [Synthroid] 100 mcg PO HS 02/25/16 01/06/23 History Terazosin [Hytrin] 5 mg PO DAILY@1700 02/25/16 01/06/23 History metFORMIN HCL [Glucophage] 500 mg PO BID@0800,1700 01/14/22 01/06/23 History Acetaminophen Tab [Tylenol] 650 mg PO Q4H PRN 01/06/23 01/06/23 History Cholecalciferol [Vitamin D3 (25 50 mcg PO DAILY 01/06/23 01/06/23 History Mcg = 1000 Iu)] Famotidine [Pepcid] 20 mg PO DAILY PRN 01/06/23 01/06/23 History Magnesium Hydroxide [Milk of 7,200 mg PO DAILY PRN 01/06/23 01/06/23 History Magnesia Concentrate] Magnesium Oxide [Mag-Ox] 400 mg PO DAILY@1700 01/06/23 01/06/23 History Allergies Allergy/AdvReac Type Severity Reaction Status Date / Time No Known Allergies Allergy Verified 01/06/23 07:15 Surgical - Exam Vital Signs Temp Pulse Resp BP Pulse Ox 97 F L 94 20 132/53 95 01/05/23 23:07 01/05/23 23:07 01/05/23 23:07 01/05/23 23:07 01/05/23 23:07 General: Well developed, well nourished. No acute distress. HEENT: Head is atraumatic, normocephalic. Lungs: Respirations even and nonlabored. On RA. Abdomen/GI: Soft, [id number]. Colostomy present. : Normal phallus, normal urethral meatus. The scrotum and testes are normal. Hickey catheter draining clear yellow urine. Skin: Warm and dry Neurologic: Pleasantly confused Psychiatric: Appropriate mood and affect. Results - Labs 01/06/23 05:06 01/06/23 05:06 Abnormal Lab Results - Last 24 Hours (Table) 01/05/23 01/05/23 01/05/23 Range/Units 23:44 23:44 23:44 WBC 11.5 H (3.8-10.6) k/uL RBC 3.90 L (4.30-5.90) m/uL Hgb 11.9 L (13.0-17.5) gm/dL Hct 36.3 L (39.0-53.0) % Neutrophils # 9.9 H (1.3-7.7) k/uL Lymphocytes # 0.7 L (1.0-4.8) k/uL Potassium 5.6 H (3.5-5.1) mmol/L Chloride 109 H (98-107) mmol/L Carbon Dioxide 19 L (22-30) mmol/L BUN 73 H (9-20) mg/dL Creatinine 2.04 H (0.66-1.25) mg/dL Glucose 180 H (74-99) mg/dL POC Glucose (mg/dL) (70-110) mg/dL Plasma Lactic Acid Geoffrey 2.9 H* (0.7-2.0) mmol/L Albumin 3.3 L (3.5-5.0) g/dL 01/06/23 01/06/23 Range/Units 05:06 08:07 WBC (3.8-10.6) k/uL RBC 3.72 L (4.30-5.90) m/uL Hgb 11.1 L (13.0-17.5) gm/dL Hct 35.2 L (39.0-53.0) % Neutrophils # 8.6 H (1.3-7.7) k/uL Lymphocytes # (1.0-4.8) k/uL Potassium (3.5-5.1) mmol/L Chloride (98-107) mmol/L Carbon Dioxide (22-30) mmol/L BUN (9-20) mg/dL Creatinine (0.66-1.25) mg/dL Glucose (74-99) mg/dL POC Glucose (mg/dL) 168 H (70-110) mg/dL Plasma Lactic Acid Geoffrey (0.7-2.0) mmol/L Albumin (3.5-5.0) g/dL Diabetes panel 01/05/23 Range/Units 23:44 Sodium 138 (137-145) mmol/L Potassium 5.6 H (3.5-5.1) mmol/L Chloride 109 H (98-107) mmol/L Carbon Dioxide 19 L (22-30) mmol/L BUN 73 H (9-20) mg/dL Creatinine 2.04 H (0.66-1.25) mg/dL Glucose 180 H (74-99) mg/dL Calcium 8.9 (8.4-10.2) mg/dL AST 21 (17-59) U/L ALT 17 (4-49) U/L Alkaline Phosphatase 66 (38-126) U/L Total Protein 6.8 (6.3-8.2) g/dL Albumin 3.3 L (3.5-5.0) g/dL Calcium panel 01/05/23 Range/Units 23:44 Calcium 8.9 (8.4-10.2) mg/dL Albumin 3.3 L (3.5-5.0) g/dL Pituitary panel 01/05/23 Range/Units 23:44 Sodium 138 (137-145) mmol/L Potassium 5.6 H (3.5-5.1) mmol/L Chloride 109 H (98-107) mmol/L Carbon Dioxide 19 L (22-30) mmol/L BUN 73 H (9-20) mg/dL Creatinine 2.04 H (0.66-1.25) mg/dL Glucose 180 H (74-99) mg/dL Calcium 8.9 (8.4-10.2) mg/dL Adrenal panel 01/05/23 Range/Units 23:44 Sodium 138 (137-145) mmol/L Potassium 5.6 H (3.5-5.1) mmol/L Chloride 109 H (98-107) mmol/L Carbon Dioxide 19 L (22-30) mmol/L BUN 73 H (9-20) mg/dL Creatinine 2.04 H (0.66-1.25) mg/dL Glucose 180 H (74-99) mg/dL Calcium 8.9 (8.4-10.2) mg/dL Total Bilirubin 0.7 (0.2-1.3) mg/dL AST 21 (17-59) U/L ALT 17 (4-49) U/L Alkaline Phosphatase 66 (38-126) U/L Total Protein 6.8 (6.3-8.2) g/dL Albumin 3.3 L (3.5-5.0) g/dL - Imaging CT scan - abdomen: report reviewed Assessment and Plan Assessment: The patient was examined in the emergency department. His transfer records were reviewed by Dr. Arriola. He denies any pain. Due to the patient's altered mental status, Dr. Arriola contacted his son, Kodak. He would like us to further investigate his father's hydronephrosis and agrees for us to perform a cystoscopy, retrograde pyelogram, possible ureteroscopy, possible stent placement. At this time we will see how he progresses in regards to his pneumonia and monitor his serum creatinine. (1) Hydronephrosis Current Visit: Yes Status: Acute Code(s): N13.30 - UNSPECIFIED HYDRONEPHROSIS SNOMED Code(s): 81124973 Plan: - Monitor creatinine - Maintain Hickey catheter - Possible cystoscopy, retrograde pyelogram, possible ureteroscopy, possible stent placement Thank you for this consultation Impression and plan of care have been directed as dictated by the signing physician. Stella Villatoro nurse practitioner acting as scribe for signing physician. Stella Villatoro [facility] Palliative Care/Urology [facility] [id number] Email: [email or web address] I have personally seen and examined the patient, reviewed the documentation and agree with the assessment and plan as written. Number of minutes spent on the visit: 35. Derrick Arriola MD Time with Patient: Greater than 30
[2023-01-06] MEDS: PIPERACILLIN-TAZOBACTAM 3.375 GM in SODIUM CHLORIDE 0.9% 100 ML IVPB SCH ×2 (11:24→19:32)
[2023-01-06 12:51] LABS: Glucose,Whole Blood 134 mg/dL (70-110)
[2023-01-06] MEDS ORDERED: DEXTROSE 50% SYRINGE 50 ML IVP PRN ×2 (14:37)
--- NOTE | 2023-01-06 14:59 | P.PN ---
Subjective Progress Note Date: 01/06/23 Hospital course: Patient is a very pleasant 87-year-old male with a past medical history of dementia and currently resides in a [facility] long term with baseline mentation and A and O 1-2, hypertension, hyperlipidemia, insulin-dependent diabetes mellitus, hypothyroidism, stage III chronic kidney disease, BPH, and colorectal cancer status post resection and colostomy. He presented to our emergency department on 01/05/23 as a transfer from [place] emergency department where patient was found to have sepsis secondary to UTI and multifocal pneumonia. Per documentation on chart patient was sent from the long term to the emergency department after he began choking/coughing on medications. Patient underwent full evaluation and a CT abdomen and pelvis was completed which reportedly revealed multifocal pneumonia and mild left-sided hydronephrosi s. Labs completed and also reviewed. CBC revealed leukocytosis with WBC count of 11.5 and normocytic anemia with hemoglobin of 11.9. BMP revealed hyperkalemia with potassium of 5.6, hyperchloremia with chloride of 109, hypocarbia with bicarb of 19, and elevated renal function with BUN of 73, crea tinine 2.04 and GFR of 29 with baseline creatinine around 1.5. Lactic acid was initially elevated at 2.9 and patient was provided with IV fluid hydration with repeat lactate of 1.3. Patient was started on IV antibiotics with Zosyn secondary to concerns of aspiration pneumonia and UTI and was admitted under our services with consultation to urology. Physical exam: Patient seen and fully evaluated at bedside. Patient alert to self only, but currently pleasant and cooperative and denies having any complaints of pain or discomfort. Hickey catheter in place to dependent drainage and draining clear straw-colored urine without any noted difficulties. Vital signs reviewed and stable. General: Nontoxic, no distress and appears stated age. Derm: Skin warm and dry, normal coloration for ethnicity. Head: Atraumatic, normocephalic and symmetric. Eyes: EOMs intact, no lid lag, and anicteric sclera Mouth: no lip lesions, mucus membranes moist Cardiovascular: regular rate and rhythm with normal S1S2, systolic murmur, positive posterior tibial pulses bilaterally, and cap refill < 2 seconds. Lungs: Respirations even, regular, and unlabored on room air. Lungs diffuse rhonchi, with no wheezing or crackles noted and no accessory muscle usage. GI/: Abdomen soft, nontender to palpation, no guarding, no appreciable organomegaly. Colostomy present. Hickey catheter in placed to dependent drainage with clear straw-colored urine in collection bag and tubing, no obvious sediment noted. Ext: ROM intact. No gross muscle atrophy, no edema, no contractures Neuro: Speech clear, face symmetrical and CN II-XII grossly intact with no noted focal neuro deficits Psych: Alert and oriented to person only and confused to place and time and per report and documentation on chart this is patient's baseline mentation. Patient pleasant and cooperative. Assessment and Plan of Care: Multifocal pneumonia UTI Sepsis, likely multifactorial secondary to above. Left-sided nonobstructive hydronephrosis Acute kidney injury on chronic kidney disease stage III Hyperkalemia, resolved -Morning labs reviewed. Showing resolution of lactic acidosis with initial lactate of 2.9 and repeat lactate of 1.3. CBC revealed resolution of leukocytosis with WBC count of 10.4 from previous 11.5. BMP revealed resolution of hyperkalemia with potassium of 5.4 previous of 5.6 and worsening renal function with BUN 70, creatinine 2.3, and GFR of 24.8. -Order placed for maintaining/management of Hickey catheter -Continue IV Antibiotics: Zosyn 3.375 g IVPB every 8 hours for treatment of both UTI and pneumonia -Aspiration precautions placed and bedside swallow exam to be completed then may advance diet to regular diet and keep NPO at midnight for possible cystoscopy with stent placement -Urology consulted and discussed plan of care with urology AIRCRAFT LANDING GEAR INSPECTOR and was informed likely plan is to perform cystoscopy with possible stent placement. -Secondary to continued worsening renal function we will continue with 0.9% normal saline at 100 mL per hour and continue to monitor renal function closely with repeat a.m. labs. -Order placed for strict I's and O's every shift. -Order placed for repeat BMP with a.m. labs to monitor renal function -Patient to receive finasteride 5 mg daily in substitution of Terazosin based on hospital availability. Diabetes mellitus with hyperglycemia -Glucose has ranged 134-186 throughout hospitalization. -Patient started on glycemic protocol with NovoLog sliding scale. History of colon cancer status post resection and colostomy -Order placed for colostomy care as needed Dementia -Provide safe and supportive care with reorientation/redirection as needed -Fall precautions Hypothyroidism Continue daily medication regimen of levothyroxine CODE STATUS: Full Code DVT prophylaxis: Heparin Discussed with: Patient, urology AIRCRAFT LANDING GEAR INSPECTOR, and RN. Per urology AIRCRAFT LANDING GEAR INSPECTOR, urologist already called and spoke with patient's son regarding updates on plan of care. Anticipated discharge date: Clinical course to determine Anticipated discharge place: Return to [facility] Patient was seen independently by Nurse Pracitioner. This document was prepared using [employer] dictation software. Please allow for errors in tag writer, while rare they do occur. Shine Edwards NP rendered care for this patient independently, reviewed the findings and plan as documented in the note above. I did not physically speak with or examine the patient on this date. Objective - Vital Signs Vital signs: Vital Signs Temp 97 F L 01/05/23 23:07 Pulse 90 01/06/23 11:21 Resp 16 01/06/23 11:21 BP 144/65 01/06/23 11:21 Pulse Ox 95 01/06/23 11:21 FiO2 Intake & Output 01/05/23 01/06/23 01/06/23 18:59 06:59 18:59 Weight 70.307 kg - Labs CBC & Chem 7: 01/06/23 05:06 01/06/23 05:06 Labs: Abnormal Lab Results - Last 24 Hours (Table) 01/05/23 01/05/23 01/05/23 Range/Units 23:44 23:44 23:44 WBC 11.5 H (3.8-10.6) k/uL RBC 3.90 L (4.30-5.90) m/uL Hgb 11.9 L (13.0-17.5) gm/dL Hct 36.3 L (39.0-53.0) % Neutrophils # 9.9 H (1.3-7.7) k/uL Lymphocytes # 0.7 L (1.0-4.8) k/uL Potassium 5.6 H (3.5-5.1) mmol/L Chloride 109 H (98-107) mmol/L Carbon Dioxide 19 L (22-30) mmol/L BUN 73 H (9-20) mg/dL Creatinine 2.04 H (0.66-1.25) mg/dL Est GFR (CKD-EPI)AfAm (60.0-200.0) Est GFR (CKD-EPI)NonAf (60.0-200.0) BUN/Creatinine Ratio (12.00-20.00) Ratio Glucose 180 H (74-99) mg/dL POC Glucose (mg/dL) (70-110) mg/dL Plasma Lactic Acid Geoffrey 2.9 H* (0.7-2.0) mmol/L Albumin 3.3 L (3.5-5.0) g/dL 01/06/23 01/06/23 01/06/23 Range/Units 05:06 05:06 08:07 WBC (3.8-10.6) k/uL RBC 3.72 L (4.30-5.90) m/uL Hgb 11.1 L (13.0-17.5) gm/dL Hct 35.2 L (39.0-53.0) % Neutrophils # 8.6 H (1.3-7.7) k/uL Lymphocytes # (1.0-4.8) k/uL Potassium (3.5-5.1) mmol/L Chloride (98-107) mmol/L Carbon Dioxide (22-30) mmol/L BUN 70.0 H (9-20) mg/dL Creatinine 2.3 H (0.66-1.25) mg/dL Est GFR (CKD-EPI)AfAm 28.7 L (60.0-200.0) Est GFR (CKD-EPI)NonAf 24.8 L (60.0-200.0) BUN/Creatinine Ratio 30.43 H (12.00-20.00) Ratio Glucose 186 H (74-99) mg/dL POC Glucose (mg/dL) 168 H (70-110) mg/dL Plasma Lactic Acid Geoffrey (0.7-2.0) mmol/L Albumin (3.5-5.0) g/dL 01/06/23 Range/Units 12:49 WBC (3.8-10.6) k/uL RBC (4.30-5.90) m/uL Hgb (13.0-17.5) gm/dL Hct (39.0-53.0) % Neutrophils # (1.3-7.7) k/uL Lymphocytes # (1.0-4.8) k/uL Potassium (3.5-5.1) mmol/L Chloride (98-107) mmol/L Carbon Dioxide (22-30) mmol/L BUN (9-20) mg/dL Creatinine (0.66-1.25) mg/dL Est GFR (CKD-EPI)AfAm (60.0-200.0) Est GFR (CKD-EPI)NonAf (60.0-200.0) BUN/Creatinine Ratio (12.00-20.00) Ratio Glucose (74-99) mg/dL POC Glucose (mg/dL) 134 H (70-110) mg/dL Plasma Lactic Acid Geoffrey (0.7-2.0) mmol/L Albumin (3.5-5.0) g/dL
[2023-01-06 15:44] LABS: Appearance,Urine Cloudy (Clear); Bacteria,Urine Rare /hpf; Bilirubin,Urine Negative (Negative); Blood,Urine Moderate (Negative); Color,Urine Light Yellow; Glucose,Urine (UA) Negative (Negative); Hyaline Casts,Urine 9 /lpf (0-2); Ketones,Urine Negative (Negative); Leukocyte Esterase,Urine Large (Negative); Mucus,Urine Rare /hpf; Nitrite,Urine Negative (Negative); Protein,Urine 1+ (Negative); RBC,Urine 42 /hpf (0-5); Specific Gravity,Urine 1.016 (1.001-1.035); Squamous Epithelial Cell,Urine <1 /hpf (0-4); Urobilinogen,Urine <2.0 mg/dL (<2.0); WBC,Urine >182 /hpf (0-5)
[2023-01-06] MEDS ORDERED: TERAZOSIN 5 MG PO SCH (17:00)
[2023-01-06 17:04] LABS: Glucose,Whole Blood 146 mg/dL (70-110)
[2023-01-06] MEDS: ATORVASTATIN 40 MG TAB PO SCH (20:40)
[2023-01-06 22:41] LABS: Glucose,Whole Blood 232 mg/dL (70-110)
[2023-01-07] MEDS: HEPARIN SODIUM,PORCINE/PF 5,000 UNIT/0.5 ML SYRINGE SQ SCH ×3 (01:12→17:34)
[2023-01-07] MEDS: PIPERACILLIN-TAZOBACTAM 3.375 GM in SODIUM CHLORIDE 0.9% 100 ML IVPB SCH ×3 (04:08→18:14)
[2023-01-07] MEDS: LEVOTHYROXINE 100 MCG TAB PO SCH (06:46)
[2023-01-07] MEDS: PANTOPRAZOLE 40 MG TABLET PO SCH (08:51)
[2023-01-07] MEDS: FINASTERIDE 5 MG TAB PO SCH (08:51)
[2023-01-07] MEDS: SODIUM CHLORIDE 0.9% 1,000 ML IV SCH (09:21)
[2023-01-07] MEDS: INSULIN ASPART (NovoLOG) 100 UNIT/ML VIAL SQ SCH ×4 (09:25→21:02)
[2023-01-07 09:31] LABS: Glucose,Whole Blood 129 mg/dL (70-110)
[2023-01-07 12:05] LABS: Glucose,Whole Blood 126 mg/dL (70-110)
--- NOTE | 2023-01-07 12:40 | P.PN ---
Subjective Progress Note Date: 01/07/23 Hospital course: Patient is a very pleasant 87-year-old male with a past medical history of dementia and currently resides in a [facility] fci with baseline mentation and A and O 1-2, hypertension, hyperlipidemia, insulin-dependent diabetes mellitus, hypothyroidism, stage III chronic kidney disease, BPH, and colorectal cancer status post resection and colostomy. He presented to our emergency department on 01/05/23 as a transfer from [place] emergency department where patient was found to have sepsis secondary to UTI and multifocal pneumonia. Per documentation on chart patient was sent from the [facility] to the emergency department after he began choking/coughing on medications. Patient underwent full evaluation and a CT abdomen and pelvis was completed which reportedly revealed multifocal pneumonia and mild left-sided hydronephrosi s. Labs completed and also reviewed. CBC revealed leukocytosis with WBC count of 11.5 and normocytic anemia with hemoglobin of 11.9. BMP revealed hyperkalemia with potassium of 5.6, hyperchloremia with chloride of 109, hypocarbia with bicarb of 19, and elevated renal function with BUN of 73, crea tinine 2.04 and GFR of 29 with baseline creatinine around 1.5. Lactic acid was initially elevated at 2.9 and patient was provided with IV fluid hydration with repeat lactate of 1.3. Patient was started on IV antibiotics with Zosyn secondary to concerns of aspiration pneumonia and UTI and was admitted under our services with consultation to urology. Physical exam: Patient seen and fully evaluated at bedside. Patient remains alert to self only and has sitter at bedside maintaining safety, patient watching cartoons on television and remains pleasant and cooperative and continues to deny having any complaints of pain or discomfort. Hickey catheter in place to dependent drainage and draining clear straw-colored urine without any noted difficulties. Patient has had a documented urinary output of 600 mL since placement of Hickey catheter. Vital signs reviewed and stable. General: Nontoxic, no distress and appears stated age. Derm: Skin warm and dry, normal coloration for ethnicity. Head: Atraumatic, normocephalic and symmetric. Eyes: EOMs intact, no lid lag, and anicteric sclera Mouth: no lip lesions, mucus membranes moist Cardiovascular: regular rate and rhythm with normal S1S2, systolic murmur, positive posterior tibial pulses bilaterally, and cap refill < 2 seconds. Lungs: Respirations even, regular, and unlabored on room air. Lungs diffuse rhonchi, with no wheezing or crackles noted and no accessory muscle usage. GI/: Abdomen soft, nontender to palpation, no guarding, no appreciable organomegaly. Colostomy present. Hickey catheter in placed to dependent drainage with clear straw-colored urine in collection bag and tubing, no obvious sediment noted. Ext: ROM intact. No gross muscle atrophy, no edema, no contractures Neuro: Speech clear, face symmetrical and CN II-XII grossly intact with no noted focal neuro deficits Psych: Alert and oriented to person only and confused to place and time and per report and documentation on chart this is patient's baseline mentation. Patient pleasant and cooperative. Assessment and Plan of Care: Multifocal pneumonia UTI Sepsis, likely multifactorial secondary to above. Left-sided nonobstructive hydronephrosis Acute kidney injury on chronic kidney disease stage III, improving Hyperkalemia, resolved -Morning labs reviewed. CBC revealing resolution of previously noted leukocytosis with WBC count of 9.2 from previous 11.03. BMP revealing hypernatremia with sodium of 146 and hyperchloremia with chloride of 114, improvement of acute kidney injury with BUN 45, creatinine 1.64, and GFR of 37 (improving from yesterday's labs showing BUN of 70, creatinine 2.3, and GFR of 24.8). -Patient has been receiving 0.9% normal saline at 100 mL's per hour, patient now with hypernatremia and hyperchloremia, discontinued normal saline infusion and started patient on D5.45 percent MS at 75 mL's per hour. -Patient to be nothing by mouth at midnight for planned cystoscopy tomorrow with urologist. -Continue maintaining/management of Hickey catheter -Continue IV Antibiotics: Zosyn 3.375 g IVPB every 8 hours for treatment of both UTI and pneumonia -Aspiration precautions placed and bedside swallow exam to be completed then may advance diet to regular diet and keep NPO at midnight for scheduled cystoscopy tomorrow. -Urology consulted and discussed plan of care with urology SENIOR CISCO NETWORK ENGINEER, plan is for cystoscopy tomorrow. -Questionable documentation of accurate output, discussed with nursing importa nce of strict I's and O's every shift. -Order placed for repeat BMP with a.m. labs for close monitoring of renal function -Patient to continue to receive finasteride 5 mg daily in substitution of Dex zosin based on hospital availability. Diabetes mellitus with hyperglycemia -Glucose has ranged 126-232 throughout hospitalization. -Patient to continue glycemic protocol with NovoLog sliding scale. History of colon cancer status post resection and colostomy -Order placed for colostomy care as needed Dementia -Provide safe and supportive care with reorientation/redirection as needed -Fall precautions Hypothyroidism Continue daily medication regimen of levothyroxine CODE STATUS: Full Code DVT prophylaxis: Heparin Discussed with: Patient, urology SENIOR CISCO NETWORK ENGINEER, and RN. Per urology SENIOR CISCO NETWORK ENGINEER, urologist already called and spoke with patient's son regarding updates on plan of care and scheduled cystoscopy for tomorrow. Anticipated discharge date: Clinical course to determine Anticipated discharge place: Return to [facility] Patient was seen independently by Nurse Pracitioner. This document was prepared using [employer] dictation software. Please allow for errors in curtain stretcher, while rare they do occur. Shine Edwards NP rendered care for this patient independently, reviewed the findings and plan as documented in the note above. I did not physically speak with or examine the patient on this date. Objective - Vital Signs Vital signs: Vital Signs Temp 97.6 F 01/07/23 10:31 Pulse 85 01/07/23 12:08 Resp 14 01/07/23 12:08 BP 185/86 01/07/23 12:08 Pulse Ox 98 01/07/23 12:08 FiO2 - Labs CBC & Chem 7: 01/08/23 06:37 01/08/23 06:42 Labs: Abnormal Lab Results - Last 24 Hours (Table) 01/06/23 01/06/23 01/06/23 Range/Units 12:49 15:22 17:02 POC Glucose (mg/dL) 134 H 146 H (70-110) mg/dL Urine Protein 1+ H (Negative) Urine Blood Moderate H (Negative) Ur Leukocyte Esterase Large H (Negative) Urine RBC 42 H (0-5) /hpf Urine WBC >182 H (0-5) /hpf Urine Bacteria Rare H (None) /hpf Hyaline Casts 9 H (0-2) /lpf Urine Mucus Rare H (None) /hpf 01/06/23 01/07/23 01/07/23 Range/Units 22:39 09:24 12:01 POC Glucose (mg/dL) 232 H 129 H 126 H (70-110) mg/dL Urine Protein (Negative) Urine Blood (Negative) Ur Leukocyte Esterase (Negative) Urine RBC (0-5) /hpf Urine WBC (0-5) /hpf Urine Bacteria (None) /hpf Hyaline Casts (0-2) /lpf Urine Mucus (None) /hpf Microbiology - Last 24 Hours (Table) 01/06/23 15:22 Urine Culture - Preliminary Urine,Voided
[2023-01-07 14:44] LABS: HGB 11.3 g/dL (13.0-17.0); MCH 29.7 pg (27.0-32.0); MCHC 31.4 g/dL (32.0-37.0); MCV 94.5 fL (80.0-97.0); Mean Platelet Volume 9.6 fL (9.5-12.2); NRBC Per 100 WBC 0 /100 WBCS (0.0-0.0); Platelet Count 332 X 10*3/uL (140-440); RBC 3.81 X 10*6/uL (4.40-5.60); RDW 13.6 % (11.5-14.5); WBC 11.03 X 10*3/uL (4.50-10.00)
--- NOTE | 2023-01-07 14:56 | P.PN ---
Subjective Progress Note Date: 01/07/23 Principal diagnosis: Left hydronephrosis The patient is an 87 year-old male with a past medical history of CVA, dementia, diabetes mellitus, and colorectal cancer s/p colostomy. He presented to the emergency department today as a transfer from [facility]. He found to have a UTI, multifocal pneumonia and sepsis. The patient was transferred to this facility for admission for further workup and evaluation. The patient is pleasantly confused and a poor historian. Information obtained from EMR. The patient is a [facility] resident. Reportedly, he was at his baseline status of health when today while trying to take his pills, he suddenly started chocking coughing and gagging until he coughed up the pills. then he continued to be short of breath and coughing, for which he was sent to the hospital for evaluation. No report of fever, chills, nausea or vomiting, no report of chest pain, abdominal pain, or any recent hospital stay. Workup in [place] emergency department included a abdominal CT which revealed mild left hydronephrosis without an obvious cause of obstruction, and a chest CT with evidence of multifocal pneumonia. The patient sent to our facility for urology evaluation due to left hydronephrosis and treatment of pneumonia. 01/06 The patient was examined in the emergency department. His transfer records were reviewed by Dr. Arriola. He denies any pain. Due to the patient's altered mental status, Dr. Arriola contacted his son, Kodak. He would like us to further investigate his father's hydronephrosis and agrees for us to perform a cystoscop y, retrograde pyelogram, possible ureteroscopy, possible stent placement. At this time we will see how he progresses in regards to his pneumonia and monitor his serum creatinine. Objective - Vital Signs Vital signs: Vital Signs Temp 97.5 F L 01/06/23 17:40 Pulse 95 01/07/23 09:27 Resp 18 01/07/23 09:27 BP 189/90 01/07/23 09:27 Pulse Ox 97 01/07/23 09:27 FiO2 - Exam General: Well developed, well nourished. No acute distress. HEENT: Head is atraumatic, normocephalic. Lungs: Respirations even and nonlabored. On RA. Abdomen/GI: Soft, non-distended, non-tender. Colostomy present. : Normal phallus, normal urethral meatus. The scrotum and testes are normal. Hickey catheter draining clear yellow urine. Skin: Warm and dry Neurologic: Pleasantly confused Psychiatric: Appropriate mood and affect. - Labs CBC & Chem 7: 01/07/23 15:00 01/07/23 15:00 Labs: Abnormal Lab Results - Last 24 Hours (Table) 01/06/23 01/06/23 01/06/23 Range/Units 05:06 12:49 15:22 BUN 70.0 H (9.0-27.0) mg/dL Creatinine 2.3 H (0.6-1.5) mg/dL Est GFR (CKD-EPI)AfAm 28.7 L (60.0-200.0) Est GFR (CKD-EPI)NonAf 24.8 L (60.0-200.0) BUN/Creatinine Ratio 30.43 H (12.00-20.00) Ratio Glucose 186 H (70-110) mg/dL POC Glucose (mg/dL) 134 H (70-110) mg/dL Urine Protein 1+ H (Negative) Urine Blood Moderate H (Negative) Ur Leukocyte Esterase Large H (Negative) Urine RBC 42 H (0-5) /hpf Urine WBC >182 H (0-5) /hpf Urine Bacteria Rare H (None) /hpf Hyaline Casts 9 H (0-2) /lpf Urine Mucus Rare H (None) /hpf 01/06/23 01/06/23 01/07/23 Range/Units 17:02 22:39 09:24 BUN (9.0-27.0) mg/dL Creatinine (0.6-1.5) mg/dL Est GFR (CKD-EPI)AfAm (60.0-200.0) Est GFR (CKD-EPI)NonAf (60.0-200.0) BUN/Creatinine Ratio (12.00-20.00) Ratio Glucose (70-110) mg/dL POC Glucose (mg/dL) 146 H 232 H 129 H (70-110) mg/dL Urine Protein (Negative) Urine Blood (Negative) Ur Leukocyte Esterase (Negative) Urine RBC (0-5) /hpf Urine WBC (0-5) /hpf Urine Bacteria (None) /hpf Hyaline Casts (0-2) /lpf Urine Mucus (None) /hpf Microbiology - Last 24 Hours (Table) 01/06/23 15:22 Urine Culture - Preliminary Urine,Voided Assessment and Plan Assessment: The patient reports some discomfort to penis from his Hickey catheter. The pa daniel will likely have a cystoscopy, left retrograde pyelogram, possible ureteroscopy, possible stent placement tomorrow with Dr. Arriola. UA suggestive of UTI. Urine culture pending. Patient currently receiving Zosyn. (1) Hydronephrosis Current Visit: Yes Status: Acute Code(s): N13.30 - UNSPECIFIED HYDRON EPHROSIS SNOMED Code(s): 63009949 Plan: - Monitor creatinine - todays labs pending - Maintain Hickey catheter - Possible cystoscopy, retrograde pyelogram, possible ureteroscopy, possible stent placement tomorrow - NPO after midnight - Awaiting urine culture, antibiotics per primary team Thank you for this consultation Impression and plan of care have been directed as dictated by the signing physician. Stella Villatoro nurse practitioner acting as scribe for signing physician. Stella Villatoro [facility] [id number] Email: [email or web address] I have personally seen and examined the patient, reviewed the documentation and agree with the assessment and plan as written. Number of minutes spent on the visit: 25. Derrick Arriola MD
[2023-01-07 15:40] LABS: Basophils % (A) 0 %; Eosinophils # (A) 0.1 k/uL (0-0.7); Eosinophils % (A) 1 %; HCT 35.5 % (39.0-53.0); HGB 11.3 gm/dL (13.0-17.5); Lymphocytes # (A) 1.1 k/uL (1.0-4.8); Lymphocytes % (A) 11 %; MCH 29.7 pg (25.0-35.0); MCHC 31.7 g/dL (31.0-37.0); MCV 93.7 fL (80.0-100.0); Mean Platelet Volume 7.2; Monocytes # (A) 0.5 k/uL (0-1.0); Monocytes % (A) 6 %; Neutrophils # (A) 7.3 k/uL (1.3-7.7); Neutrophils % (A) 80 %; Platelet Count 367 k/uL (150-450); RBC 3.79 m/uL (4.30-5.90); RDW 13.3 % (11.5-15.5); WBC 9.2 k/uL (3.8-10.6)
[2023-01-07 15:49] LABS: ALT 15 U/L (4-49); AST 19 U/L (17-59); African American GFR (CKD) 43 (>60 ml/min/1.73 sqM); Albumin 3.4 g/dL (3.5-5.0); Albumin/Globulin Ratio 0.9; Alkaline Phosphatase 75 U/L (38-126); Anion Gap 8 mmol/L; Blood Urea Nitrogen 45 mg/dL (9-20); Carbon Dioxide 24 mmol/L (22-30); Chloride 114 mmol/L (98-107); Globulin 3.8 g/dL; Glucose 179 mg/dL (74-99); Magnesium 1.9 mg/dL (1.6-2.3); Non-African American GFR(CKD) 37 (>60 ml/min/1.73 sqM); Potassium 5.1 mmol/L (3.5-5.1); Sodium 146 mmol/L (137-145); Total Bilirubin 0.6 mg/dL (0.2-1.3); Total Protein 7.2 g/dL (6.3-8.2)
[2023-01-07 17:20] LABS: African American GFR (CKD) 38.6 (60.0-200.0); Albumin 3.4 g/dL (3.8-4.9); Albumin/Globulin Ratio 0.89 (1.60-3.17); Anion Gap 18.1 mmol/L (10.00-18.00); BUN/Creat Ratio 27.39 Ratio (12.00-20.00); Blood Urea Nitrogen 49.3 mg/dL (9.0-27.0); Calcium 9.3 mg/dL (8.7-10.3); Carbon Dioxide 16.9 mmol/L (20.0-27.5); Globulin 3.8 g/dL (1.6-3.3); Magnesium 1.9 mg/dL (1.5-2.4); Non-African American GFR(CKD) 33.3 (60.0-200.0); Potassium 4.7 mmol/L (3.5-5.5); Total Bilirubin 0.4 mg/dL (0.30-1.20); Total Protein 7.2 g/dL (6.2-8.2)
[2023-01-07] MEDS: DEXTROSE 5%-0.45% NACL 1,000 ML IV SCH (17:35)
[2023-01-07 17:46] LABS: Glucose,Whole Blood 175 mg/dL (70-110)
[2023-01-07 20:48] LABS: Glucose,Whole Blood 125 mg/dL (70-110)
[2023-01-08] MEDS ORDERED: QUEtiapine 25 MG TAB PO STA (00:20)
[2023-01-08] MEDS: ATORVASTATIN 40 MG TAB PO SCH ×2 (00:20→20:14)
[2023-01-08] MEDS: HEPARIN SODIUM,PORCINE/PF 5,000 UNIT/0.5 ML SYRINGE SQ SCH ×4 (00:38→23:29)
[2023-01-08 01:10] LABS: Glucose,Whole Blood 127 mg/dL (70-110)
[2023-01-08] MEDS: PIPERACILLIN-TAZOBACTAM 3.375 GM in SODIUM CHLORIDE 0.9% 100 ML IVPB SCH ×3 (03:24→18:44)
[2023-01-08] MEDS: DEXTROSE 5%-0.45% NACL 1,000 ML IV SCH (03:28)
[2023-01-08 06:28] LABS: Glucose,Whole Blood 118 mg/dL (70-110)
[2023-01-08 06:54] LABS: Basophils % (A) 1 %; Eosinophils # (A) 0.2 k/uL (0-0.7); Eosinophils % (A) 2 %; HCT 36.9 % (39.0-53.0); HGB 11.4 gm/dL (13.0-17.5); Hypochromasia Moderate; Lymphocytes # (A) 1.1 k/uL (1.0-4.8); Lymphocytes % (A) 14 %; MCHC 30.9 g/dL (31.0-37.0); Mean Platelet Volume 7.4; Monocytes # (A) 0.5 k/uL (0-1.0); Monocytes % (A) 6 %; Neutrophils # (A) 5.7 k/uL (1.3-7.7); Neutrophils % (A) 75 %; Platelet Count 328 k/uL (150-450); RDW 13.5 % (11.5-15.5); WBC 7.6 k/uL (3.8-10.6)
[2023-01-08 07:18] LABS: Glucose,Whole Blood 115 mg/dL (70-110)
[2023-01-08] MEDS: INSULIN ASPART (NovoLOG) 100 UNIT/ML VIAL SQ SCH ×4 (07:22→20:35)
[2023-01-08] MEDS: LEVOTHYROXINE 100 MCG TAB PO SCH (07:36)
[2023-01-08 09:28] LABS: African American GFR (CKD) 44.5 (60.0-200.0); Anion Gap 13.4 mmol/L (10.00-18.00); BUN/Creat Ratio 23.94 Ratio (12.00-20.00); Blood Urea Nitrogen 38.3 mg/dL (9.0-27.0); Calcium 8.9 mg/dL (8.7-10.3); Carbon Dioxide 19.6 mmol/L (20.0-27.5); Non-African American GFR(CKD) 38.4 (60.0-200.0); Potassium 3.9 mmol/L (3.5-5.5)
[2023-01-08] MEDS: PANTOPRAZOLE 40 MG TABLET PO SCH (09:43)
[2023-01-08] MEDS: FINASTERIDE 5 MG TAB PO SCH (09:44)
[2023-01-08 10:33] LABS: Glucose,Whole Blood 125 mg/dL (70-110)
[2023-01-08] MEDS ORDERED: IV FLUID CONTINUATION 1,000 ML IV ONE (14:04)
[2023-01-08] MEDS ORDERED: fentaNYL (PF) 50 MCG/ML 2 ML AMP ONE (15:08)
[2023-01-08] MEDS ORDERED: PROPOFOL 10 MG/ML 20 ML VIAL IV ONE (15:08)
[2023-01-08] MEDS ORDERED: MIDAZOLAM 2 MG/2 ML VIAL ONE (15:08)
[2023-01-08] MEDS ORDERED: KETAMINE 10 MG/ML 20 ML VIAL ONE (15:08)
[2023-01-08] MEDS ORDERED: LIDOCAINE 2% GLYDO JELLY 6 ML APPL MISCELLANE ONE ×2 (15:34)
--- NOTE | 2023-01-08 15:56 | P.OP ---
Date of Procedure: 01/08/23 Preoperative Diagnosis: Left Hydronephrosis Postoperative Diagnosis: Same Procedure(s) Performed: Cystoscopy, left retrograde pyelogram Anesthesia: MAC Surgeon: Derrick Arriola Estimated Blood Loss (ml): 0 IV fluids (ml): 200 Pathology: none sent Condition: stable Disposition: PACU Indications for Procedure: The patient is an 87 year-old male with a past medical history of CVA, dementia, diabetes mellitus, and colorectal cancer s/p colostomy. He presented to the emergency department today as a transfer from [facility]. He found to have a UTI, multifocal pneumonia and sepsis. The patient was transferred to this facility for admission for further workup and evaluation. The patient is pleasantly confused and a poor historian. Information obtained from EMR. The [facility]. Reportedly, he was at his baseline status of health when today while trying to take his pills, he suddenly started chocking coughing and gagging until he coughed up the pills. then he continued to be short of breath and coughing, for which he was sent to the hospital for evaluation. No report of fever, chills, nausea or vomiting, no report of chest pain, abdominal pain, or any recent hospital stay. Workup in [place] emergency department included a abdominal CT which revealed mild left hydronephrosis without an obvious cause of obstruction, and a chest CT with evidence of multifocal pneumonia. The patient sent to our facility for urology evaluation due to left hydronephrosis and treatment of pneumonia. Operative Findings: Gaping left ureteral orifice, left hydroureteronephrosis, consistent with left vesicoureteral reflux. Description of Procedure: The patient was taken to the operating room and placed in the dorsolithotomy position. The external genitalia was prepped and draped sterilely. 2% lidocaine gel was administered intraurethrally. The 30 lens was used to introduce the 22-Russian Stortz cystoscopic sheath through the urethra and into the bladder under direct vision. The anterior urethra appeared normal. The prostatic urethra showed evidence of mild bilobar enlargement. The bladder was examined in its entirety. No tumors or foreign bodies were seen. The ureteral orifices were enlarged in caliber, particularly on the left side. A 6-Russian ureteral catheter was advanced through the left ureteral orifice and up to the left mid ureter. Contrast was injected. The left ureter was noted to be dilated and somewhat tortuous. There was evidence of left hydronephrosis. No filling defects were seen. The system drained somewhat sluggishly. There was no evidence of obstruction, and it appears that the hydronephrosis is due to vesicoureteral reflex. The bladder was emptied and the cystoscope removed. The patient tolerated the procedure well was taken to the recovery was stable condition.
--- NOTE | 2023-01-08 16:07 | FL ---
Intraoperative/procedural fluoroscopic services were provided for cystogram. Total fluoroscopy time i s 1.01 minutes with a total of 3 submitted images to PACS. Total DAP 4.3025. Please see the operative note for further details.
--- NOTE | 2023-01-08 16:50 | P.PN ---
Subjective Progress Note Date: 01/08/23 Hospital course: Patient is a very pleasant 87-year-old male with a past medical history of dementia and currently resides in a [facility] care home with baseline mentation and A and O 1-2, hypertension, hyperlipidemia, insulin-dependent diabetes mellitus, hypothyroidism, stage III chronic kidney disease, BPH, and colorectal cancer status post resection and colostomy. He presented to our emergency department on 01/05/23 as a transfer from [place] emergency department where patient was found to have sepsis secondary to UTI and multifocal pneumonia. Per documentation on chart patient was sent from the care home to the emergency department after he began choking/coughing on medications. Patient underwent full evaluation and a CT abdomen and pelvis was completed which reportedly revealed multifocal pneumonia and mild left-sided hydronephros is. Labs completed and also reviewed. CBC revealed leukocytosis with WBC count of 11.5 and normocytic anemia with hemoglobin of 11.9. BMP revealed hyperkalemia with potassium of 5.6, hyperchloremia with chloride of 109, hypocarbia with bicarb of 19, and elevated renal function with BUN of 73, cre atinine 2.04 and GFR of 29 with baseline creatinine around 1.5. Lactic acid was initially elevated at 2.9 and patient was provided with IV fluid hydration with repeat lactate of 1.3. Patient was started on IV antibiotics with Zosyn secondary to concerns of aspiration pneumonia and UTI and was admitted under our services with consultation to urology. Physical exam: Patient seen and fully evaluated at bedside. Patient remains alert to self only and has sitter at bedside maintaining safety, patient currently denying any complaints at this time. Hickey catheter remains in place. Patient awaiting to be taken down for pyelogram later today. Vital signs reviewed and stable. General: Nontoxic, no distress and appears stated age. Derm: Skin warm and dry, normal coloration for ethnicity. Head: Atraumatic, normocephalic and symmetric. Eyes: EOMs intact, no lid lag, and anicteric sclera Mouth: no lip lesions, mucus membranes moist Cardiovascular: regular rate and rhythm with normal S1S2, systolic murmur, positive posterior tibial pulses bilaterally, and cap refill < 2 seconds. Lungs: Respirations even, regular, and unlabored on room air. Lungs diffuse rhonchi, with no wheezing or crackles noted and no accessory muscle usage. GI/: Abdomen soft, nontender to palpation, no guarding, no appreciable organomegaly. Colostomy present. Hickey catheter in placed to dependent drainage with clear straw-colored urine in collection bag and tubing, no obvious sediment noted. Ext: ROM intact. No gross muscle atrophy, no edema, no contractures Neuro: Speech clear, face symmetrical and CN II-XII grossly intact with no noted focal neuro deficits Psych: Alert and oriented to person only and confused to place and time and per report and documentation on chart this is patient's baseline mentation. Patient pleasant and cooperative. Assessment and Plan of Care: Multifocal pneumonia Sepsis, secondary to above. Left-sided nonobstructive hydronephrosis Acute kidney injury on chronic kidney disease stage III, improving Hyperkalemia, resolved Hypernatremia, resolved UTI ruled out urine culture negative -Morning labs reviewed. CBC revealing WBC count of 7.6 and stable normocytic anemia with hemoglobin of 11.4. BMP showing continued slight improvement in renal function with BUN of 38.3, creatinine 1.6, and GFR of 38.4. -Patient received D5.45% at 75 mL's per hour and has had resolution of previously noted hypernatremia with morning BMP revealing sodium of 144. -Patient scheduled to undergo left retrograde pyelogram later today with urology. -Continue maintaining/management of Hickey catheter -Continue IV Antibiotics: Zosyn 3.375 g IVPB every 8 hours for treatment of pneumonia -Bedside swallow evaluation was completed patient showing no difficulties swallowing and may advance to regular diet once pyelogram is completed. -Urology following and patient scheduled to undergo left retrograde pyelogram later today. -Patient has had a documented urinary output of 1600 mL over the past 24 hours. -Order placed for repeat BMP with a.m. labs for close monitoring of renal function -Patient to continue to receive finasteride 5 mg daily in substitution of Terazosin based on hospital availability. Diabetes mellitus with hyperglycemia -Glucose has ranged from 115-175 over the past 24 hours -Patient to continue glycemic protocol with NovoLog sliding scale. History of colon cancer status post resection and colostomy -Order placed for colostomy care as needed Dementia -Provide safe and supportive care with reorientation/redirection as needed -Fall precautions Hypothyroidism Continue daily medication regimen of levothyroxine CODE STATUS: Full Code DVT prophylaxis: Heparin Discussed with: Patient and RN. Anticipated discharge date: Clinical course to determine Anticipated discharge place: Return to [facility] Patient was seen independently by Nurse Pracitioner. This document was prepared using [employer] dictation software. Please allow for errors in ship washer, while rare they do occur. Shine Edwards, NOTCHING MACHINE OPERATOR rendered care for this patient independently, reviewed the findings and plan as documented in the note above. I did not physically speak with or examine the patient on this date. Objective - Vital Signs Vital signs: Vital Signs Temp 97.4 F L 01/08/23 15:53 Pulse 62 01/08/23 16:23 Resp 16 01/08/23 16:23 BP 146/64 01/08/23 16:23 Pulse Ox 100 01/08/23 16:23 FiO2 Intake & Output 01/07/23 01/08/23 01/08/23 18:59 06:59 18:59 Intake Total 800 900 Output Total 600 1000 450 Balance -600 -200 450 Weight 70.307 kg Intake: IV 900 Intake, IV Titration 800 Amount Dextrose 5%-0.45% NaCl 1, 600 000 ml @ 75 mls/hr IV . [id number] SHUKRI Rx#:[id number] Piperacillin-Tazobactam 3 200 .375 gm In Sodium Chloride 0.9% 100 ml @ 25 mls/hr IVPB Q8H SHUKRI Rx#: [id number] Output: Urine 600 1000 450 Estimated Blood Loss 0 Other: Voiding Method Indwelling Catheter # Bowel Movements 0 - Labs CBC & Chem 7: 01/08/23 06:37 01/08/23 06:42 Labs: Abnormal Lab Results - Last 24 Hours (Table) 01/07/23 01/07/23 01/07/23 Range/Units 09:35 17:45 20:42 RBC (4.30-5.90) m/uL Hgb (13.0-17.5) gm/dL Hct (39.0-53.0) % MCHC (31.0-37.0) g/dL Chloride (96-109) mmol/L Carbon Dioxide 16.9 L (20.0-27.5) mmol/L Anion Gap 18.10 H (10.00-18.00) mmol/L BUN 49.3 H (9.0-27.0) mg/dL Creatinine 1.8 H (0.6-1.5) mg/dL Est GFR (CKD-EPI)AfAm 38.6 L (60.0-200.0) Est GFR (CKD-EPI)NonAf 33.3 L (60.0-200.0) BUN/Creatinine Ratio 27.39 H (12.00-20.00) Ratio Glucose 142 H (70-110) mg/dL POC Glucose (mg/dL) 175 H 125 H (70-110) mg/dL Albumin 3.4 L (3.8-4.9) g/dL Globulin 3.8 H (1.6-3.3) g/dL Albumin/Globulin Ratio 0.89 L (1.60-3.17) g/dL 01/08/23 01/08/23 01/08/23 Range/Units 01:08 06:26 06:37 RBC 3.80 L (4.30-5.90) m/uL Hgb 11.4 L (13.0-17.5) gm/dL Hct 36.9 L (39.0-53.0) % MCHC 30.9 L (31.0-37.0) g/dL Chloride (96-109) mmol/L Carbon Dioxide (20.0-27.5) mmol/L Anion Gap (10.00-18.00) mmol/L BUN (9.0-27.0) mg/dL Creatinine (0.6-1.5) mg/dL Est GFR (CKD-EPI)AfAm (60.0-200.0) Est GFR (CKD-EPI)NonAf (60.0-200.0) BUN/Creatinine Ratio (12.00-20.00) Ratio Glucose (70-110) mg/dL POC Glucose (mg/dL) 127 H 118 H (70-110) mg/dL Albumin (3.8-4.9) g/dL Globulin (1.6-3.3) g/dL Albumin/Globulin Ratio (1.60-3.17) g/dL 01/08/23 01/08/23 01/08/23 Range/Units 06:42 07:14 10:31 RBC (4.30-5.90) m/uL Hgb (13.0-17.5) gm/dL Hct (39.0-53.0) % MCHC (31.0-37.0) g/dL Chloride 111 H (96-109) mmol/L Carbon Dioxide 19.6 L (20.0-27.5) mmol/L Anion Gap (10.00-18.00) mmol/L BUN 38.3 H (9.0-27.0) mg/dL Creatinine 1.6 H (0.6-1.5) mg/dL Est GFR (CKD-EPI)AfAm 44.5 L (60.0-200.0) Est GFR (CKD-EPI)NonAf 38.4 L (60.0-200.0) BUN/Creatinine Ratio 23.94 H (12.00-20.00) Ratio Glucose 116 H (70-110) mg/dL POC Glucose (mg/dL) 115 H 125 H (70-110) mg/dL Albumin (3.8-4.9) g/dL Globulin (1.6-3.3) g/dL Albumin/Globulin Ratio (1.60-3.17) g/dL Microbiology - Last 24 Hours (Table) 01/06/23 15:22 Urine Culture - Final Urine,Voided
[2023-01-08 17:24] LABS: Glucose,Whole Blood 164 mg/dL (70-110)
[2023-01-08 20:25] LABS: Glucose,Whole Blood 76 mg/dL (70-110)
[2023-01-08] MEDS ORDERED: QUEtiapine 25 MG TAB PO SCH (21:00)
[2023-01-09] MEDS: PIPERACILLIN-TAZOBACTAM 3.375 GM in SODIUM CHLORIDE 0.9% 100 ML IVPB SCH ×2 (03:31→11:20)
[2023-01-09] MEDS: LEVOTHYROXINE 100 MCG TAB PO SCH (05:10)
[2023-01-09 07:25] LABS: Glucose,Whole Blood 79 mg/dL (70-110)
[2023-01-09] MEDS: INSULIN ASPART (NovoLOG) 100 UNIT/ML VIAL SQ SCH ×3 (07:30→18:03)
[2023-01-09] MEDS: HEPARIN SODIUM,PORCINE/PF 5,000 UNIT/0.5 ML SYRINGE SQ SCH ×2 (07:33→15:49)
[2023-01-09] MEDS: FINASTERIDE 5 MG TAB PO SCH (07:34)
[2023-01-09 07:36] VITALS: TEMP 97.6
[2023-01-09] MEDS: PANTOPRAZOLE 40 MG TABLET PO SCH (09:56)
--- NOTE | 2023-01-09 10:06 | P.PN ---
Subjective Progress Note Date: 01/09/23 Principal diagnosis: Left hydronephrosis The patient is an 87 year-old male with a past medical history of CVA, dementia, diabetes mellitus, and colorectal cancer s/p colostomy. He presented to the emergency department today as a transfer from [facility]. He found to have a UTI, multifocal pneumonia and sepsis. The patient was transferred to this facility for admission for further workup and evaluation. The patient is pleasantly confused and a poor historian. Information obtained from EMR. [facility]. Reportedly, he was at his baseline status of health when today while trying to take his pills, he suddenly started chocking coughing and gagging until he coughed up the pills. then he continued to be short of breath and coughing, for which he was sent to the hospital for evaluation. No report of fever, chills, nausea or vomiting, no report of chest pain, abdominal pain, or any recent hospital stay. Workup in [place] emergency department included a abdominal CT which revealed mild left hydronephrosis without an obvious cause of obstruction, and a chest CT with evidence of multifocal pneumonia. The patient sent to our facility for urology evaluation due to left hydronephrosis and treatment of pneumonia. 01/06 The patient was examined in the emergency department. His transfer records were reviewed by Dr. Arriola. He denies any pain. Due to the patient's altered mental status, Dr. Arriola contacted his son, Kodak. He would like us to further investigate his father's hydronephrosis and agrees for us to perform a cystoscopy, retrograde pyelogram, possible ureteroscopy, possible stent placement. At this time we will see how he progresses in regards to his pneumonia and monitor his serum creatinine. 01/07 The patient reports some discomfort to penis from his Hickey catheter. The patient will likely have a cystoscopy, left retrograde pyelogram, possible ureteroscopy, possible stent placement tomorrow with Dr. Arriola. UA suggestive of UTI. Urine culture pending. Patient currently receiving Zosyn. 01/08 The patient underwent a cystoscopy, left retrograde pyelogram with . There was no evidence of obstruction, and it appears that the hydronephrosis is due to vesicoureteral reflux. The patient tolerated the procedure well and he was taken to the recovery room in stable condition. Objective - Vital Signs Vital signs: Vital Signs Temp 97.6 F 01/09/23 07:25 Pulse 86 01/09/23 07:25 Resp 17 01/09/23 07:25 BP 161/89 01/09/23 07:25 Pulse Ox 94 L 01/09/23 07:25 FiO2 Intake & Output 01/08/23 01/09/23 01/09/23 18:59 06:59 18:59 Intake Total 900 710 Output Total 450 150 Balance 450 560 Intake: IV 900 Oral 710 Output: Urine 450 150 Estimated Blood Loss 0 Other: Voiding Method Indwelling Catheter Diaper Urinal Diaper # Voids 1 - Exam General: Well developed, well nourished. No acute distress. HEENT: Head is atraumatic, normocephalic. Lungs: Respirations even and nonlabored. On RA. Abdomen/GI: Soft, non-distended, non-tender. Colostomy present. : Diaper/brief place for incontinence Skin: Warm and dry Neurologic: Pleasantly confused Psychiatric: Appropriate mood and affect. - Labs CBC & Chem 7: 01/09/23 07:10 01/09/23 07:10 Labs: Abnormal Lab Results - Last 24 Hours (Table) 01/08/23 01/08/23 Range/Units 10:31 17:22 POC Glucose (mg/dL) 125 H 164 H (70-110) mg/dL Assessment and Plan Assessment: Cystoscopy performed yesterday was consistent with the left hydronephrosis being due to vesicoureteral reflux. No intervention is felt to be warranted. The patient is awake and alert. There is a campus safety officer at his bedside. The patient reports feeling great today. He denies any pain or discomfort. Urine culture negative. Today's labs are pending. Yesterday's serum creatinine was 1.6, which is his baseline. Dr. Arriola will call the patient's son and update him today. From a urological standpoint the patient may be discharged. (1) Hydronephrosis Current Visit: Yes Status: Acute Code(s): N13.30 - UNSPECIFIED HYDRONEPHROSIS SNOMED Code(s): 91787906 Plan: - Antibiotics per primary team - Patient may be discharged from a urological standpoint and follow up with Dr. Arriola as needed. Thank you for this consultation Impression and plan of care have been directed as dictated by the signing physician. Stella Villatoro nurse practitioner acting as scribe for signing physician. Stella Villatoro [facility] Palliative Care/Urology [facility] [id number] Email: [email or web address] I have personally seen and examined the patient, reviewed the documentation and agree with the assessment and plan as written. Number of minutes spent on the visit: 15. Derrick Arriola MD
--- NOTE | 2023-01-09 10:20 | XR ---
EXAMINATION TYPE: XR chest 1V portable DATE OF EXAM: 01/09/2023 9:46 AM COMPARISON: Chest radiographs from 01/14/2022 TECHNIQUE: XR chest 1V portable Frontal view of the chest. CLINICAL INDICATION:Male, 87 years old with history of follow up multifocal pneumonia; FINDINGS: Lungs/Pleura: No pleural effusion or pneumothorax. Scattered patchy reticular opacities throughout th e lungs with left greater than right. Background pulmonary fibrotic changes. Biapical pleural thicken ing. Pulmonary vascularity: Unremarkable. Heart/mediastinum: Cardiomediastinal silhouette is unremarkable. Atherosclerotic calcifications are seen in the aorta. Musculoskeletal: No acute osseous pathology. Dorsal osteoporosis of the thoracic spine. IMPRESSION: Multifocal airspace disease concerning for pneumonia.
[2023-01-09 10:42] LABS: HCT 34.8 % (39.6-50.0); HGB 10.9 g/dL (13.0-17.0); MCH 29.7 pg (27.0-32.0); MCHC 31.3 g/dL (32.0-37.0); MCV 94.8 fL (80.0-97.0); Mean Platelet Volume 9.4 fL (9.5-12.2); NRBC Per 100 WBC 0 /100 WBCS (0.0-0.0); Platelet Count 356 X 10*3/uL (140-440); RBC 3.67 X 10*6/uL (4.40-5.60); RDW 13.3 % (11.5-14.5); WBC 9.88 X 10*3/uL (4.50-10.00)
[2023-01-09 10:52] LABS: African American GFR (CKD) 48.2 (60.0-200.0); Anion Gap 17.1 mmol/L (10.00-18.00); BUN/Creat Ratio 22.6 Ratio (12.00-20.00); Blood Urea Nitrogen 33.9 mg/dL (9.0-27.0); Calcium 8.9 mg/dL (8.7-10.3); Carbon Dioxide 17.9 mmol/L (20.0-27.5); Non-African American GFR(CKD) 41.6 (60.0-200.0); Potassium 3.8 mmol/L (3.5-5.5)
[2023-01-09 11:09] LABS: Glucose,Whole Blood 200 mg/dL (70-110)
[2023-01-09 12:14] VITALS: BP 149/73; PULSE 103; RESP 18
--- NOTE | 2023-01-09 13:46 | P.DS ---
Providers Date of admission: 01/06/23 00:22 Expected date of discharge: 01/09/23 Attending physician: Daylin Angelo MD Consults: 01/06/23 00:21 Consult Physician Routine Consulting Provider: Derrick Arriola Consult Reason/Comments: Hydronephrosis Do you want consulting provider notified?: Yes, Notify in am Primary care physician: [facility] Hospital Course: Discharge Diagnosis: Multifocal pneumonia. Patient received 3 day course of IV antibiotics with Zosyn while in the hospital and is being discharged home on an additional 4 days of antibiotics with Augmentin 500 mg/125 twice daily to complete a 7 day course of antibiotic treatment for concerns of aspiration pneumonia with underlying pulmonary fibrosis. Pulmonary fibrosis, recommend establishing care and following up outpatient with a mold machine operator. Sepsis, secondary to above. Left-sided nonobstructive hydronephrosis. Patient underwent cystoscopy and left retrograde pyelogram on 01/08/23 showing no evidence of obstruction, urology reporting it appears that the hydronephrosis was due to vesicoureteral reflux. Acute kidney injury on chronic kidney disease stage III, resolved. Renal function upon discharge showing BUN of 33.9, creatinine 1.5, and GFR 41.6. Hyperkalemia, resolved. Hypernatremia, resolved. UTI ruled out urine culture negative. Diabetes mellitus with hyperglycemia. Resume metformin 500 mg twice a day. History of colon cancer status post resection and colostomy Dementia. Patient was started on Seroquel 25 mg nightly. Patient had significant improvement with confusion and outbursts per nursing reports. Hypothyroidism. Continue daily medication regimen of levothyroxine 100 g nightly. Hospital Course: Patient is a very pleasant 87-year-old male with a past medical history of dementia and currently resides in a [facility] with baseline mentation and A and O 1-2, hypertension, hyperlipidemia, insulin-dependent diabetes mellitus, hypothyroidism, stage III chronic kidney disease, BPH, and colorectal cancer status post resection and colostomy. He presented to our emergency department on 01/05/23 as a transfer from [place] emergency department where patient was found to have sepsis secondary to UTI and multifocal pneumonia. Per documentation on chart patient was sent from the intermediate to the emergency department after he began choking/coughing on medications. Patient underwent full evaluation and a CT abdomen and pelvis was completed which reportedly revealed multifocal pneumonia and mild left-sided hydronephrosis. Labs completed and also reviewed. CBC revealed leukocytosis with WBC count of 11.5 and normocytic anemia with hemoglobin of 11.9. BMP revealed hyperkalemia with potassium of 5.6, hyperchloremia with chloride of 109, hypocarbia with bicarb of 19, and elevated renal function with BUN of 73, creatinine 2.04 and GFR of 29 with baseline creatinine around 1.5. Lactic acid was initially elevated at 2.9 and patient was provided with IV fluid hydration with repeat lactate of 1.3. Patient was started on IV antibiotics with Zosyn secondary to concerns of aspiration pneumonia and UTI and was admitted under our services with consultation to urology. Patient underwent cystoscopy and left retrograde pyelogram on 01/08/23 showing no evidence of obstruction, urology reporting it appears that the hydronephrosis was due to vesicoureteral reflux. Urine culture was negative for growth. Repeat chest x-ray completed on day of discharge and compared with chest x-ray from previous visit on 01/14/22 and findings on both imagings very similar revealing pulmonary fibrosis. Patient has been on room air with oxygen saturations 100%. Patient denies having any shortness of breath, cough, or congestion. Patient received 3 day course of Zosyn while in the hospital and is being discharged home on an additional 4 days of antibiotics with Augmentin 500 mg/125 twice daily to complete a 7 day course of antibiotic treatment for possible aspiration pneumonia with underlying pulmonary fibrosis. Patient being discharged back to [facility] at this time. Called and updated patient's son (Kodak Jones) on discharge plans and all questions answered at this time. Physical exam: Vital signs reviewed and stable. General: Nontoxic, no distress and appears stated age. Derm: Skin warm and dry, normal coloration for ethnicity. Head: Atraumatic, normocephalic and symmetric. Eyes: EOMs intact, no lid lag, and anicteric sclera Mouth: no lip lesions, mucus membranes moist Cardiovascular: regular rate and rhythm with normal S1S2, systolic murmur, positive posterior tibial pulses bilaterally, and cap refill < 2 seconds. Lungs: Respirations even, regular, and unlabored on room air. Lungs with equal air entry and exit, no wheezing, rhonchi or crackles noted. No accessory muscle usage. GI/: Abdomen soft, nontender to palpation, no guarding, no appreciable organomegaly. Colostomy present. Hickey catheter in placed to dependent drainage with clear straw-colored urine in collection bag and tubing, no obvious sediment noted. Ext: ROM intact. No gross muscle atrophy, no edema, no contractures Neuro: Speech clear, face symmetrical and CN II-XII grossly intact with no noted focal neuro deficits Psych: Alert and oriented to person only and confused to place and time and per report and documentation on chart this is patient's baseline mentation. Patient pleasant and cooperative. A total of 32 minutes of time were spent preparing this complex discharge summary. Pt was discharged on 01/09/23 at 1:22 PM Patient was seen independently by Nurse Practitioner. This document was prepared using [employer] dictation software. Please allow for errors in magazine worker while rare they do occur. Patient Condition at Discharge: Stable Plan - Discharge Summary Discharge Rx Participant: No New Discharge Prescriptions: New Amoxic-Pot Clav 500-125 mg [Augmentin 500-125 mg] 1 tab PO Q12HR 4 Days #8 tab QUEtiapine [SEROquel] 25 mg PO HS 30 Days #30 tab Continue Terazosin [Hytrin] 5 mg PO DAILY@1700 Levothyroxine Sodium [Synthroid] 100 mcg PO HS metFORMIN HCL [Glucophage] 500 mg PO BID@0800,1700 Magnesium Hydroxide [Milk of Magnesia Concentrate] 7,200 mg PO DAILY PRN PRN Reason: Constipation Acetaminophen Tab [Tylenol] 650 mg PO Q4H PRN PRN Reason: general discomfort Cholecalciferol [Vitamin D3 (25 Mcg = 1000 Iu)] 50 mcg PO DAILY Famotidine [Pepcid] 20 mg PO DAILY PRN PRN Reason: Dyspepsia Magnesium Oxide [Mag-Ox] 400 mg PO DAILY@1700 Discharge Medication List Levothyroxine Sodium [Synthroid] 100 mcg PO HS 02/25/16 [History] Terazosin [Hytrin] 5 mg PO DAILY@1700 02/25/16 [History] metFORMIN HCL [Glucophage] 500 mg PO BID@0800,1700 01/14/22 [History] Acetaminophen Tab [Tylenol] 650 mg PO Q4H PRN 01/06/23 [History] Cholecalciferol [Vitamin D3 (25 Mcg = 1000 Iu)] 50 mcg PO DAILY 01/06/23 [History] Famotidine [Pepcid] 20 mg PO DAILY PRN 01/06/23 [History] Magnesium Hydroxide [Milk of Magnesia Concentrate] 7,200 mg PO DAILY PRN 01/06/23 [History] Magnesium Oxide [Mag-Ox] 400 mg PO DAILY@1700 01/06/23 [History] Amoxic-Pot Clav 500-125 mg [Augmentin 500-125 mg] 1 tab PO Q12HR 4 Days #8 tab 01/09/23 [Rx] QUEtiapine [SEROquel] 25 mg PO HS 30 Days #30 tab 01/09/23 [Rx] Follow up Appointment(s)/Referral(s): Ava Bui MD [STAFF PHYSICIAN] - 2 Weeks Derrick Arriola MD [STAFF PHYSICIAN] - As Needed [facility] [Primary Care Provider] - 1-2 days Patient Instructions/Handouts: Pulmonary Fibrosis (DC), Aspiration Pneumonia (DC), Chronic Lung Disease and Infection Prevention (DC) Activity/Diet/Wound Care/Special Instructions: Activity: As tolerated. Take breaks as needed. Diet: Heart healthy diet. Swallow eval was completed at bedside and patient showing no difficulties of swallowing throughout hospitalization. Special Instructions: Take all of your medications as directed and remember to keep all of your doctor's appointments and follow-up as needed. Recommend patient establishing care with mold machine operator for interstitial lung disease with suspected pulmonary fibrosis. Thank you for allowing us to participate in your care, it was truly a pleasure having you for our patient!!! Discharge Disposition: TRANSFER TO SNF/ECF
[2023-01-09 17:08] LABS: Glucose,Whole Blood 160 mg/dL (70-110)
== END 2023-01-09 19:25 | DRG 871 ==
LOC: EC 22:56 → 5NMEDONC 01-06 00:22
PROVIDERS: ADMIT Internal Medicine; ATTEND Internal Medicine
PROC: BT1F1ZZ Fluoroscopy of Left Kidney, Ureter and Bladder using Low Osmolar Contrast (ICD-10-PCS; principal; 2023-01-08 07:30)
DX: A41.9 Sepsis, unspecified organism (principal); J69.0 Pneumonitis due to inhalation of food and vomit; J96.01 Acute respiratory failure with hypoxia; N17.9 Acute kidney failure, unspecified; N13.6 Pyonephrosis; E87.0 Hyperosmolality and hypernatremia; B96.0 Mycoplasma pneumoniae [M. pneumoniae] as the cause of diseases classified elsewhere; E03.9 Hypothyroidism, unspecified; Z79.890 Hormone replacement therapy; E11.22 Type 2 diabetes mellitus with diabetic chronic kidney disease; E78.5 Hyperlipidemia, unspecified; F03.90 Unspecified dementia, unspecified severity, without behavioral disturbance, psychotic disturbance, mood disturbance, and anxiety; I12.9 Hypertensive chronic kidney disease with stage 1 through stage 4 chronic kidney disease, or unspecified chronic kidney disease; N18.30 Chronic kidney disease, stage 3 unspecified; E87.5 Hyperkalemia; E11.65 Type 2 diabetes mellitus with hyperglycemia; D64.9 Anemia, unspecified; N40.0 Benign prostatic hyperplasia without lower urinary tract symptoms; Z85.048 Personal history of other malignant neoplasm of rectum, rectosigmoid junction, and anus; Z87.19 Personal history of other diseases of the digestive system; E87.8 Other disorders of electrolyte and fluid balance, not elsewhere classified; N13.70 Vesicoureteral-reflux, unspecified; K21.9 Gastro-esophageal reflux disease without esophagitis; J84.10 Pulmonary fibrosis, unspecified; R41.0 Disorientation, unspecified; Z79.84 Long term (current) use of oral hypoglycemic drugs; Z79.4 Long term (current) use of insulin; Z79.899 Other long term (current) drug therapy; Z86.011 Personal history of benign neoplasm of the brain; Z86.73 Personal history of transient ischemic attack (TIA), and cerebral infarction without residual deficits; Z93.3 Colostomy status
CPT/HCPCS: 36415; 71045; 74420; 80048; 80053; 81001; 83605; 83690; 83735; 85025; 85027; 87086; 96361; 96365; 96366; 96367; 96372; 99285